=== PATIENT | female | born 1970 | race Caucasian/White ===

== ENCOUNTER 2021-07-30 09:25 | Inpatient (IN) | payer MEDICARE ==
[2021-07-30] VITALS (19 sets, daily range): BP systolic 122–198; BP diastolic 83–107
[~2021-07-30] VITALS: Ht 165.1 cm; Wt 70.0 kg
--- NOTE | 2021-07-30 09:38 | NUR ---
PT ESCORTED TO ROOM FOR EVAL CP, SOB WITH SIGNIFICANT OTHER AT BEDSIDE
[2021-07-30 09:48] LABS: HEMATOCRIT 26.1 % (37.0-47.0); HEMOGLOBIN 7.9 g/dl (12.0-16.0); IMMATURE GRANULOCYTES 0.1 % (0.0-5.0); MEAN CELL VOLUME 92.2 fL CALC (80.0-100.0); MEAN CORPUSCULAR HGB 27.9 pG CALC (26.0-32.0); MEAN CORPUSCULAR HGB CONC 30.3 g/dL CAL (32.0-36.0); NEUT# 3.9 thou/uL (2.00-7.15); RED BLOOD COUNT 2.83 mill/uL (4.20-5.60); RED CELL DISTRI WIDTH 14.3 % (11.5-15.5)
[2021-07-30 10:13] LABS: ALBUMIN 3.8 g/dL (3.2-5.0); BILIRUBIN, TOTAL 0.6 mg/dL (0.0-1.4); POTASSIUM 4.1 mmol/l (3.5-5.1); TOTAL PROTEIN 7.4 g/dL (6.3-8.2)
[2021-07-30 10:15] LABS: CREATININE 7.7 mg/dL (0.5-1.0)
[2021-07-30 10:31] LABS: HCG SERUM/URINE (NEG/POS) NEGATIVE (NEGATIVE)
--- NOTE | 2021-07-30 10:53 | NUR ---
DR MASON IN TO SPEAK WITH PT.
[2021-07-30] MEDS ORDERED: ATIVAN0.5 MG PO (11:12)
[2021-07-30] MEDS ORDERED: AMLODIPINE BESY10 MG PO (11:13)
[2021-07-30] MEDS ORDERED: SODIUM BICAR650 MG PO (11:13)
[2021-07-30] MEDS ORDERED: CITALOPRAM40 M1 PO (11:14)
[2021-07-30] MEDS ORDERED: LIPITOR80 M1 PO (11:14)
--- NOTE | 2021-07-30 12:00 | NUR ---
MD AT BEDSIDE TO DISCUSS RESULTS AND POC
--- NOTE | 2021-07-30 13:47 | NUR ---
Segundo MESSINA APRN AT BEDSIDE TO DISCUSS RESULTS AND POC
--- NOTE | 2021-07-30 14:14 | NUR ---
REPORT CALLED TO MINA MELISSA
--- NOTE | 2021-07-30 14:50 | NUR ---
TO MED SURG VIA STRETCHER
--- NOTE | 2021-07-30 15:15 | NUR ---
Receive report from Damaris EDWARD RN. PATIENT ALERT AND ORIENTED x3. nO RESPIRATORY DISTRESS AT THIS TIME. EDUCATED ABOUT PLAN OF CARE, MEDICATIONS AND NURSING INTERVENTION. PATIENT REFER UNDERSTAND.
[2021-07-30 18:34] LABS: URINE BILIRUBIN - DIPSTICK NEGATIVE (NEGATIVE); URINE BLOOD DIPSTICK TRACE-INTACT (NEGATIVE); URINE CLARITY CLEAR; URINE COLOR YELLOW; URINE GLUCOSE - DIPSTICK NEGATIVE (NEGATIVE); URINE KETONE NEGATIVE (NEGATIVE); URINE LEUK ESTERASE NEGATIVE (Negative); URINE NITRITE - DIPSTICK NEGATIVE (Negative); URINE PROTEIN - DIPSTICK >=300 mg/dL (NEG-TRACE); URINE SPECIFIC GRAVITY 1.025; URINE UROBILINOGEN - DIPSTICK 0.2 E.U./dL (0.2)
[2021-07-30 18:48] LABS: URINE RBC 0-2 RBC/hpf (0-5); URINE SQUAMOUS EPITHELIAL CELL RARE EPI/hpf (0-FEW); URINE WBC 0-2 WBC/hpf (0-5)
--- NOTE | 2021-07-30 20:00 | NUR ---
PATIENT RESTING IN BED AT THIS TIME-AWAKE ALERT AND ORIENTEDX3. TELE MONITOR IN PLACE. IVF 1/2NS HUNG AND INFUSING VIA RAC SITE AT 50CC/HR. SITE REMAINS HEALTHY AT THIS TIME. LUNGS ARE CLEAR. ABD IS SOFT WITH ACTIVE BS. LAST BM WAS TOODAY. PATIENT STATES THAT SHE IS VOIDING QS BUT DOES HAVE HISTORY OF KIDNEY FAILURE. SEES RADIOTELEGRAPHER IN MASS-HERE VISITING. NO PERIPHERAL EDEMA NOTED. PULSES ARE PALPABLE. SAFETY PRECAUTIONS REINFORCED. CALL LIGHT IN REACH. WILL CONT TO MONITOR.
--- NOTE | 2021-07-30 21:40 | NUR ---
PATIENT RESTING IN BED AT THIS TIME. MEDICATED FOR SLEEP WITH ATIVAN 0.5MG PO. PROVIDED WITH SOME APPLE JUICE. CALL LIGHT IN REACH. WILL CONT TO MONITOR.
--- NOTE | 2021-07-30 22:16 | NUR ---
214- PATIENT RESTING IN BED AT THIS TIME-C/O CHEST TIGHTNESS. BP-143/98, HR-104, RESPS-28 O2 SAT IS 92% ON RA. O2 APPLIED AT 2LPM VIA NASAL CANNULA. SKIN WARM AND DRY. EKG WAS DONE AT BEDSIDE. PATIENT MEDICATED WITH TYLENOL 650MG PO. TROP BEING DRAWN. WILL CONT TO MONITOR.
--- NOTE | 2021-07-30 22:45 | NUR ---
.PATIENT RESTING IN BED-TROP REMAINS NEG-0.081. PATIENT STILL WITH SEVERE CHEST PAIN-CHEST PRESSURE. O2 VIA NASAL CANNULA IN PLACE. IVF 1/2NS PATENT AND INFUSING VIA RAC SITE AT 50CC/HR. SITE REMAINS HEALTHY. CALL PLACED TO ARVIN MESSINA APRN AND NEW ORDERS RECIEVED. WILL MEDICATE ORDERED WHEN PROFILED ON EMAR. CALL LIGHT IN REACH. WILL CONT TO MONITOR.
--- NOTE | 2021-07-30 23:40 | NUR ---
RESTING IN BED-STILL WITH SEVERE CHEST PAIN AND TIGHTNESS. MEDICATED WITH ULTRAM 50MG PO FOR PAIN AND WITH PROTONIX 40MG IVP ORDERED. O2 VIA NASAL CANNULA IN PLACE. TELE MONITOR STILL IN ST-LOW 100'S. CALL LIGHT IN REACH. WILL CONT TO MONITOR.
[2021-07-31] VITALS: BP 157/105
--- NOTE | 2021-07-31 00:15 | NUR ---
SPOKE WITH ARVIN AGAIN REGUARDING PATIENT CONT TO HAVE SEVERE CHEST PAIN AND TIGHTNESS. MEDICATED WITH LORTAB 7.5MG PO FOR PAIN. O2 VIA NASAL CANNULA IN PLACE. IVF 1/2NS PATENT AND INFUSING VIA RAC SITE AT 50CC/HR. SITE REMAINS HEALTHY. TELE MONITOR IN PLACE AND CONT TO READ ST-LOW 100'S. SAFETY PRECAUTIONS REINFORCED. CALL LIGHT IN REACH. WILL CONT TO MONITOR.
--- NOTE | 2021-07-31 01:30 | NUR ---
PATIENT RESTING IN BED WITH HOB ELEVATED AND O2 VIA NASAL CANNULA IN PLACE. PATIENT STATES THAT SHE IS FINALLY FEELING BETTER WITH PAIN SCALE NUMBER OF 3/10. IVF PATENT AND INFUSING VIA RAC SITE ORDERED AT 50CC/HR. TELE MONITOR IN PLACE AND READING ST-LOW 100'S. CALL LIGHT IN REACH. WILL CONT TO MONITOR.
--- NOTE | 2021-07-31 02:14 | NUR ---
PATIENT RESTING IN BED WITH EYES CLOSED. RESPS HAVE SLOWED DOWN AND ARE UNLABORED. CALL LIGHT IN REACH. WILL CONT TO MONITOR.
[2021-07-31 04:00] VITALS: BP 131/96
--- NOTE | 2021-07-31 04:00 | NUR ---
PATIENT RESING IN BED AT THIS TIME. EYES CLOSED, RESPS ARE EVEN AND UNLABORED AT THIS TIME. TELE MONITOR IN PLACE-SR-89 AT THIS TIME. IVF 1/2NS PATENT AND INFUSING VIA RAC AT 50CC/HR. SITE REMAINS HEALTHY. CALL LIGHT IN REACH. WILL CONT TO MONITOR.
[2021-07-31 06:39] LABS: HEMATOCRIT 24.3 % (37.0-47.0); HEMOGLOBIN 7.4 g/dl (12.0-16.0); MEAN CELL VOLUME 91.7 fL CALC (80.0-100.0); MEAN CORPUSCULAR HGB 27.9 pG CALC (26.0-32.0); MEAN CORPUSCULAR HGB CONC 30.5 g/dL CAL (32.0-36.0); RED BLOOD COUNT 2.65 mill/uL (4.20-5.60); RED CELL DISTRI WIDTH 14.5 % (11.5-15.5)
[2021-07-31 07:01] VITALS: BP 138/93
[2021-07-31 07:08] LABS: ALBUMIN 3.3 g/dL (3.2-5.0); MAGNESIUM 1.6 mg/dL (1.6-2.3); POTASSIUM 4.9 mmol/l (3.5-5.1)
[2021-07-31 07:09] LABS: MAGNESIUM 1.7 mg/dL (1.6-2.3)
[2021-07-31 07:34] LABS: CREATININE 7.6 mg/dL (0.5-1.0)
[2021-07-31 07:35] LABS: CREATININE 7.6 mg/dL (0.5-1.0)
[2021-07-31 10:19] VITALS: BP 152/97
--- NOTE | 2021-07-31 10:30 | NUR ---
PHYSICIAN AT BEDSIDE.
--- NOTE | 2021-07-31 12:12 | NUR ---
PT ATTEMPTED TO EAT LUNCH. PT VOMITED LARGE AMOUNT OF EMESIS. HR SUSTAINING 120S-130S. ARVIN NIETO NOTIFIED. PT MEDICATED FOR N/V. PT C/O CHEST PAIN HAS RETURNED. WILL MEDICATE AND CONTINUE TO MONITOR.
[2021-07-31 15:04] VITALS: BP 116/78
--- NOTE | 2021-07-31 16:55 | NUR ---
IV TO RIGHT AC NOTED SWOLLEN AND COOL TO TOUCH. PT C/O PAINFUL. IV SITE D/C AND RIGHT ARM ELEVATED ON PILLOWS, ICE PACK PROVIDED AT THIS TIME. NEW IV STARTED BY NICOLE MELISSA. PT TOLERATED WELL. PT DENIES ANY CURRENT WANTS OR NEEDS. NO APPARENT DISTRESS NOTED. CALL LIGHT WITHIN REACH. WILL CONTINUE TO MONITOR.
[2021-07-31 19:00] VITALS: BP 108/78
--- NOTE | 2021-07-31 20:00 | NUR ---
PATIENT RESTING IN BED AT THIS TIME-AWAKE ALERT AND ORIENTEDX3. TELE MONITOR IN PLACE. IV SITE TO LEFT WRIST PATENT WITH IVF 1/2NS PATENT AND INFUSING AT 50CC/HR. REINFORCED TEACHING WITH PATIENT REGUARDING STRICT I&O AND WITH USE URINE HAT IN TOILET INTRUCTED. LUNGS ARE CLEAR BUT DIMINISHED IN THE BASES. NO PERIPHERAL EDEMA NOTED. PULSES ARE PALPABLE. SAFETY PRECAUTIONS REINFORCED. CALL LIGHT IN REACH. WILL CONT TO MONITOR.
--- NOTE | 2021-07-31 21:49 | NUR ---
PATIENT SITTING UP IN BED WITH EYES CLOSED AND O2 VIA NASAL CANNULA IN PLACE AT 2LPM. RESPS ARE EVEN AND UNLABORED. IVF PATENT AND INFUSING VIA LEFT WRIST IV SITE AT 50CC/HR. TELE MONITOR IN PLACE. CALL LIGHT IN REACH. WILL CONT TO MONITOR.
--- NOTE | 2021-07-31 22:00 | NUR ---
PATIENT RESTING IN BED-C/O LEFT SIDE CHEST AND RIGHT BACK PAIN-MEDICATED WITH ULTRAM 50MG PO FOR 4/10 PAIN SCALE. IVF PATENT AND INFUSING AT 50CC/HR VIA LEFT WRIST. TELE MONITOR IN PLACE. SAFETY PRECAUTIONS REINFORCED. CALL LIGHT IN REACH. WILL CONT TO MONITOR.
[2021-08-01] VITALS (13 sets, daily range): BP systolic 89–196; BP diastolic 55–92
--- NOTE | 2021-08-01 00:19 | NUR ---
PATIENT RESTING IN BED WITH EYES CLOSED AND O2 VIA NASAL CANNULA IN PLACE. RESPS ARE EVEN AND UNLABORED AT THIS TIME. IVF PATENT AND INFUSING VIA LEFT WRIST SITE AT 50CC/HR. TELE MONITOR IN PLACE. CALL LIGHT IN REACH. WILL CONT TO MONITOR.
--- NOTE | 2021-08-01 04:38 | NUR ---
PATIENT RESTING IN BED AT THIS TIME. O2 VIA NASAL CANNULA IN PLACE. TELE MONITOR IN PLACE-LAST READING WAS SR-92. IVF 1/2NS PATENT AND INFUSING VIA LEFT WRIST. CALL LIGHT IN REACH. WILL CONT TO MONITOR.
[2021-08-01 06:11] LABS: HEMATOCRIT 22.2 % (37.0-47.0); MEAN CELL VOLUME 91.4 fL CALC (80.0-100.0); MEAN CORPUSCULAR HGB CONC 30.6 g/dL CAL (32.0-36.0); RED BLOOD COUNT 2.43 mill/uL (4.20-5.60); RED CELL DISTRI WIDTH 14.7 % (11.5-15.5)
[2021-08-01 06:33] LABS: ALBUMIN 3.2 g/dL (3.2-5.0); MAGNESIUM 1.6 mg/dL (1.6-2.3); POTASSIUM 4.6 mmol/l (3.5-5.1)
[2021-08-01 06:35] LABS: HEMOGLOBIN 6.8 g/dl (12.0-16.0)
[2021-08-01 06:46] LABS: CREATININE 7.5 mg/dL (0.5-1.0)
--- NOTE | 2021-08-01 07:10 | NUR ---
REPORT FROM LYLA MELISSA. ASSUMED PT CARE.
--- NOTE | 2021-08-01 07:20 | NUR ---
RECIEVED CALL FROM LAB WITH CRITICAL LAB [id number]-5.4, HGB-6.8. ORDERS RECIEVED FROM DR. VICKI PURVIS BLOOD TRANSFUSION
--- NOTE | 2021-08-01 08:15 | NUR ---
NEW IV ESTABLISHED BY NICOLE MELISSA. # 20 RAC X1 ATTEMPT PT TOLERATED WELL.
--- NOTE | 2021-08-01 10:11 | NUR ---
PRBC INITIATED BY NICOLE MELISSA. PT TOLERATING WELL. WILL CONTINUE TO MONITOR.
--- NOTE | 2021-08-01 11:04 | NUR ---
PHYSICIAN AT BEDSIDE.
--- NOTE | 2021-08-01 14:13 | NUR ---
PT C/O CHEST PAIN. ARVIN NIETO NOTIFIED. PT STATES SAME PAIN FELT BEFORE. MEDICATED WITH PRN ULTRAM AT THIS TIME. PT DENIES ANY OTHER CURRENT WANTS OR NEEDS. CALL LIGHT WITHIN REACH. WILL CONTINUE TO MONITOR.
--- NOTE | 2021-08-01 15:35 | NUR ---
PT NOTED RESTING IN BED. NO APPARENT DISTRESS NOTED. PT STATES SHE FEELS BETTER AND PAIN HAS SUBSIDED. CALL LIGHT WITHIN REACH. WILL CONTINUE TO MONITOR.
--- NOTE | 2021-08-01 20:00 | NUR ---
PATIENT SITTING UP IN BED AT THIS TIME WITH 02 V[address] CANNULA IN PLACE. AWAKE ALERT AND ORIENTEDX3. O2 SAT AT THIS TIME IS 98%. TELE MONITOR IN PLACE. READING SR-99 AT THIS TIME. IVF PATENT AND INFUSING VIA LEFT WRIST SITE AT 50CC/HR . SITE REMAINS HEALTHY. SALINE LOCK TO RAC INTACT AND HEALTHY. LUNGS ARE DIMINISHED AND SHALLOW. UP TO BR TO VOID. PATIENT WITH TRACE EDEMA NOTED. SAFETY PRECAUTIONS REINFORCED. CALL LIGHT IN REACH. WILL CONT TO MONITOR.
[2021-08-02] VITALS: BP 121/79
--- NOTE | 2021-08-02 01:40 | NUR ---
RESTING IN BED WITH HOB ELEVATED-EYES CLOSED. RESPS REGULAR AND SHALLOW. CALL LIGHT IN REACH. WILL CONT TO MONITOR.
[2021-08-02 04:00] VITALS: BP 109/69
--- NOTE | 2021-08-02 05:00 | NUR ---
RESTING IN BED AT THIS TIME-EYES CLOSED, RESPS ARE EVEN AND UNLABORED. O2 VIA NASAL CANNULA IN PLACE, IVF PATENT AND INFUSING VIA LEFT WRIST SITE. CALL LIGHT IN REACH. WILL CONT TO MONITOR.
[2021-08-02 06:42] LABS: ALBUMIN 3.2 g/dL (3.2-5.0); MAGNESIUM 1.7 mg/dL (1.6-2.3)
[2021-08-02 06:43] LABS: HEMATOCRIT 24.6 % (37.0-47.0); HEMOGLOBIN 7.8 g/dl (12.0-16.0); MEAN CELL VOLUME 91.1 fL CALC (80.0-100.0); MEAN CORPUSCULAR HGB 28.9 pG CALC (26.0-32.0); MEAN CORPUSCULAR HGB CONC 31.7 g/dL CAL (32.0-36.0); RED BLOOD COUNT 2.7 mill/uL (4.20-5.60); RED CELL DISTRI WIDTH 14.5 % (11.5-15.5)
[2021-08-02 06:58] LABS: POTASSIUM 4.6 mmol/l (3.5-5.1)
--- NOTE | 2021-08-02 07:00 | NUR ---
RECIEVED CALL FROM ED IN LAB WITH CRITICAL LAB RESULTS. CREAT-7.0 AND GFR-8. TREANDING DOWN. AWARE OF TREND. WILL CONT TO MONITOR.
[2021-08-02 08:00] VITALS: BP 135/94
--- NOTE | 2021-08-02 08:00 | NUR ---
GOT REPORT FROM COMPUTER NETWORK SPECIALIST NURSE. CHECKED AND ASSESSED PATIENT. PATIENT IS AOX4. RESTING COMFORTABLE ON 2L OF O2. PATIENT DENIES ANY SHORTNESS OF BREATH, CHEST PAIN, HEADACHE, OR DIZZINESS.
[2021-08-02 10:27] VITALS: BP 132/83
--- NOTE | 2021-08-02 12:00 | NUR ---
PATIENT RESTING IN BED WITH FAMILY MEMBER AT BEDSIDE. PATIENT DENIES ANY SHORTNESS OF BREATH. ADVISED PATIENT THAT WE ARE GOING TO DO A WALK TEST BUT PATIENT WANTS TO WAIT AFTER ALL HER ANTIBIOTICS ARE DONE AND SHE HAS ATE SOMETHING FOR LUNCH
[2021-08-02 15:00] VITALS: BP 105/71
[2021-08-02 19:00] VITALS: BP 128/83
--- NOTE | 2021-08-02 20:15 | NUR ---
PATIENT ALERT AND ORIENTED. ABLE TO MAKE NEEDS KNOWN. ASSESSMENT COMPLETE. NO SHORTNESS OF BREATH. NO COMPLAINTS OF PAIN. O2 AT 2L VIA NC. PATIENT USES IS. IV SITES X2 FLUSH WITHOUT DIFFICULTY. CALL LIGHT AND BELONGINGS REMAIN IN REACH.
[2021-08-03] VITALS (7 sets, daily range): BP systolic 95–139; BP diastolic 65–91
--- NOTE | 2021-08-03 00:55 | NUR ---
PATIENT RESTING IN BED FACING HER RIGHT SIDE. NO COMPLAINTS OF PAIN. NO DISTRESS NOTED. REMAINS WEARING OXYGEN AT 2L VIA NC. CALL LIGHT AND BELONGINGS REMAIN IN REACH.
[2021-08-03 06:00] LABS: MEAN CELL VOLUME 90.5 fL CALC (80.0-100.0); MEAN CORPUSCULAR HGB 27.5 pG CALC (26.0-32.0); MEAN CORPUSCULAR HGB CONC 30.3 g/dL CAL (32.0-36.0); RED BLOOD COUNT 4.44 mill/uL (4.20-5.60); RED CELL DISTRI WIDTH 14.8 % (11.5-15.5)
[2021-08-03 06:01] LABS: HEMATOCRIT 40.2 % (37.0-47.0); HEMOGLOBIN 12.2 g/dl (12.0-16.0)
[2021-08-03 06:20] LABS: ALBUMIN 3.2 g/dL (3.2-5.0); MAGNESIUM 1.8 mg/dL (1.6-2.3); POTASSIUM 4.7 mmol/l (3.5-5.1); TOTAL PROTEIN 6.1 g/dL (6.3-8.2)
[2021-08-03 06:50] LABS: BILIRUBIN, TOTAL 0.3 mg/dL (0.0-1.4); CREATININE 7.7 mg/dL (0.5-1.0)
--- NOTE | 2021-08-03 20:20 | NUR ---
PT RESTING IN BED, NO SIGNS OF DISTRESS NOTED, RESP EVEN AND UNLABORED. PT ALERT AND ORIENTED X3, DISCUSSED POC, PT WEARING 02 1.5 L, SKIN INTACT TRACE EDEMA TO BLE, FLUSHED IV SITES X2, PT DENIES ANY NEEDS OR COMPLAINTS AT THIS TIME. ASSESSMENT COMPLETED PT MEDICATED PER MAR. CALL LIGHT IN REACH,CONTINUE TO MONITOR.
--- NOTE | 2021-08-04 | NUR ---
PT RESTING IN BED, NO SIGNS OF DISTRESS NOTED, RESP EVEN AND UNLABORED. PT GIVEN ICE, PER REQUEST. VOICES NO NEEDS OR COMPLAINTS AT THIS TIME, CALL LIGHT IN REACH,CONTINUE TO MONITOR.
[2021-08-04 03:35] VITALS: BP 122/79
--- NOTE | 2021-08-04 04:04 | NUR ---
PT RESTING IN BED, NO SIGNS OF DISTRESS NOTED, RESP EVEN AND UNLABORED. PT VOICES NO NEEDS OR COMPLAINTS AT THIS TIME. CALL LIGHT IN REACH,CONTINUE TO MONITOR.
[2021-08-04 05:48] LABS: MEAN CELL VOLUME 93.5 fL CALC (80.0-100.0); MEAN CORPUSCULAR HGB 28.3 pG CALC (26.0-32.0); MEAN CORPUSCULAR HGB CONC 30.2 g/dL CAL (32.0-36.0); RED BLOOD COUNT 2.76 mill/uL (4.20-5.60); RED CELL DISTRI WIDTH 14.8 % (11.5-15.5)
[2021-08-04 06:15] LABS: ALBUMIN 3.2 g/dL (3.2-5.0); MAGNESIUM 1.9 mg/dL (1.6-2.3); POTASSIUM 4.5 mmol/l (3.5-5.1)
[2021-08-04 06:24] LABS: CREATININE 7.5 mg/dL (0.5-1.0)
[2021-08-04 06:47] LABS: HEMATOCRIT 25.8 % (37.0-47.0); HEMOGLOBIN 7.8 g/dl (12.0-16.0)
[2021-08-04 08:27] VITALS: BP 136/93
--- NOTE | 2021-08-04 10:21 | NUR ---
GOT REPORT FROM NIGHT NURSE. PATIENT IS AOX4. PATIENT DENIES ANY PAIN IN THE CHEST AND SOB. PATIENT STATES THAT SHE WAS ABLE TO HAVE BM YESTERDAY. NO COMPLAINTS AT THIS TIME.
[2021-08-04 10:32] VITALS: BP 130/89
--- NOTE | 2021-08-04 12:05 | NUR ---
PATIENT IS SITTING UP IN BED WITH BOYFRIEND AT BEDSIDE. PATIENT DENIES ANY CHEST PAIN OR DISCOMFORT AT THIS TIME. ADVISED TO CALL IF SHE NEEDS ANYTHING.
[2021-08-04 14:00] VITALS: BP 130/68
[2021-08-04 18:51] VITALS: BP 124/76
--- NOTE | 2021-08-04 20:00 | NUR ---
PT RESTING IN BED, NO SIGNS OF DISTRESS NOTED, RESP EVEN AND UNLABORED. PT ALERT AND ORIENTED X3, DISCUSSED POC, PT C/O EPIGASTRIC PAIN MEDICATED PER MAR. PT ON 02 1L NC, SKIN INTACT. IV SL TO RFA FLUSHED WELL. ASSESSMENT REVIEW COMPLETED, CALL LIGHT IN REACH,CONTINUE TO MONITOR.
--- NOTE | 2021-08-04 21:30 | NUR ---
PT RESTING IN BED, STATES PAIN IS BETTER DOWN TO A 3. NO SIGNS OF DISTRESS NOTED, RESP EVEN AND UNLABORED. CALL LIGHT IN REACH,CONTINUE TO MONITOR.
--- NOTE | 2021-08-05 | NUR ---
PT RESTING IN BED, NO SIGNS OF DISTRESS NOTED, RESP EVEN AND UNLABORED. CALL LIGHT IN REACH,CONTINUE TO MONITOR.
[2021-08-05 00:18] VITALS: BP 124/79
[2021-08-05 03:17] VITALS: BP 139/86
[2021-08-05 05:32] LABS: HEMATOCRIT 24.8 % (37.0-47.0); HEMOGLOBIN 7.6 g/dl (12.0-16.0); IMMATURE GRANULOCYTES 0.5 % (0.0-5.0); MEAN CELL VOLUME 93.9 fL CALC (80.0-100.0); MEAN CORPUSCULAR HGB 28.8 pG CALC (26.0-32.0); MEAN CORPUSCULAR HGB CONC 30.6 g/dL CAL (32.0-36.0); NEUT# 3.96 thou/uL (2.00-7.15); RED BLOOD COUNT 2.64 mill/uL (4.20-5.60); RED CELL DISTRI WIDTH 15.2 % (11.5-15.5)
[2021-08-05 05:54] LABS: ALBUMIN 3.3 g/dL (3.2-5.0); BILIRUBIN, TOTAL 0.3 mg/dL (0.0-1.4); POTASSIUM 4.7 mmol/l (3.5-5.1); TOTAL PROTEIN 6.1 g/dL (6.3-8.2)
[2021-08-05 06:05] LABS: CREATININE 7.6 mg/dL (0.5-1.0)
[2021-08-05 06:33] VITALS: BP 141/97
--- NOTE | 2021-08-05 08:00 | NUR ---
GOT REPORT FROM CONTROL ROOM OPERATOR NURSE. CHECKED AND ASSESSED PATIENT. AOX4, NO CHEST PAIN OR DISCOMFORT. PATIENT STATES THAT SHE IS JUST REALLY TIRED SHE DID NOT SLEEP WELL LAST NIGHT. ADVISED HER THAT WE WILL TRY TO GROUP HER CARE TODAY. ADVISED HER TO CALL ME IF SHE NEEDS ANYTHING.
[2021-08-05 10:06] VITALS: BP 124/81
[2021-08-05 14:39] VITALS: BP 114/77
[2021-08-05 19:00] VITALS: BP 123/84
--- NOTE | 2021-08-05 20:37 | NUR ---
PATIENT RESTING IN BED. NO COMPLAINTS VOICED. RECEIVED ALL MEDICATIONS. NO SIGNS OF DISTRESS. ASSESSMENT COMPLETE. CALL LIGHT AND BELONGINGS IN REACH. PROVIDED PATIENT WITH FRESH ICE AND JUICE PER HER REQUEST.
[2021-08-06 00:18] VITALS: BP 131/83
--- NOTE | 2021-08-06 03:25 | NUR ---
AT 0310 PATIENT COMPLAINED OF SHORTNESS OF BREATH. O2 SAT 89 ON 1L. PATIENT ABLE TO TALK AND COMMUNICATE. INCREASED OXYGEN TO 3L. O2 SAT INCREASED TO 92% . EXPLAINED TO PATIENT WHY THE OXYGEN WAS INCREASED. AT 314 CALLED RESP TO COME ACCESS PATIENT. AT 324 PATIENT WAS GIVEN BREATHING TX BY RESP. RESP EXPLAINED TO PATIENT WHY SHE NEEDED TO STAY ON 3L OF OXYGEN.
--- NOTE | 2021-08-06 05:15 | NUR ---
PATIENT ASKED BLACKSMITH SUPERVISOR TO TURN HER OXYGEN DOWN, KNOWING MYSELF AND RT BOTH EXPLAINED IMPORTANCE OF HER NEEDING HER OXYGEN AT 3L. BLACKSMITH SUPERVISOR WAS REEDUCATED ON PATIENT SITUATION AND THE IMPORTANCE OF THE OXYGEN.
--- NOTE | 2021-08-06 05:38 | NUR ---
CALLED RT AND INFORMED OF PATIENTS OXYGEN SATS RANGING FROM 87-90% ON 3L. ALSO INFORMED RT OF PATIENT HAVING CALF SKINNER TURN DOWN HER OXYGEN AFTER HE LEFT HER ROOM AFTER HER BREATHING TX.
[2021-08-06 05:46] VITALS: BP 154/89
--- NOTE | 2021-08-06 05:50 | NUR ---
RESP. WENT TO PATIENT ROOM AGAIN TO CHECK ON HER. INSTRUCTED PATIENT TO DO PURSED LIP BREATHING TO HELP INCREASE HER OXYGEN SAT TO 92%.
[2021-08-06 05:55] LABS: ALBUMIN 3.5 g/dL (3.2-5.0); POTASSIUM 4.6 mmol/l (3.5-5.1)
[2021-08-06 06:17] LABS: CREATININE 7.4 mg/dL (0.5-1.0)
--- NOTE | 2021-08-06 06:49 | NUR ---
PATIENT REFUSED 7AM BREATHING TX FROM RESP THERAPIST.
--- NOTE | 2021-08-06 08:00 | NUR ---
GOT REPORT FROM GATE TECHNICIAN NURSE. CHECKED ON AND ASSESSED PATIENT. PATIENT WAS ASLEEP WHEN I GOT INTO HER ROOM. PATIENT LOOKS TO BED IN PAIN BUT SHE TELLS ME THAT HER PAIN IS ABOUT 3-4. SHE STATES THAT SHE WANT TO WAIT ON GETTING THE PAIN MED. O2 SATS ARE BETWEEN 91-93% ON 5L NC. PATIENT STATES THAT SHE WANT TO SLEEP BECAUSE SHE DID NOT GET MUCH SLEEP LAST NIGHT.
[2021-08-06 11:36] VITALS: BP 131/87
[2021-08-06 17:27] VITALS: BP 126/81
--- NOTE | 2021-08-06 20:00 | NUR ---
PATIENT SITTING UP IN BED-O2 VIA NASAL CANNULA IN PLACE AT 3LPM. O2 SAT IS 93% AT THIS TIME. LUNGS ARE DIMINISHED BUT CLEAR. TELE MONITOR IN PLACE WITH SR-90'S. SALINE LOCK TO RIGHT FOREARM INTACT-APPEARS HEALTHY AT THIS TIME. PATIENT UP TO BR TO VOID CESAR URINE-700CC. ANXIOUS FOR DISCHARGE. AWAITING HOME O2 AT THIS TIME. SAFETY PRECAUTIONS REINFORDCED. CALL LIGHT IN REACH. WILL CONT TO MONITOR.
[2021-08-06 20:09] VITALS: BP 121/73
--- NOTE | 2021-08-06 23:45 | NUR ---
RESTING IN BED AT THIS TIME-O2 VIA NASAL CANNULA IN PLACE. CALL LIGHT IN REACH. WILL CONT TO MONITOR.
[2021-08-07] VITALS (8 sets, daily range): BP systolic 114–144; BP diastolic 61–96
[2021-08-07 05:50] LABS: HEMATOCRIT 25.7 % (37.0-47.0); HEMOGLOBIN 7.7 g/dl (12.0-16.0); MEAN CELL VOLUME 95.9 fL CALC (80.0-100.0); MEAN CORPUSCULAR HGB 28.7 pG CALC (26.0-32.0); RED BLOOD COUNT 2.68 mill/uL (4.20-5.60); RED CELL DISTRI WIDTH 15.8 % (11.5-15.5)
[2021-08-07 06:08] LABS: ALBUMIN 3.4 g/dL (3.2-5.0)
[2021-08-07 06:26] LABS: CREATININE 7.7 mg/dL (0.5-1.0); POTASSIUM 5.2 mmol/l (3.5-5.1)
--- NOTE | 2021-08-07 06:26 | NUR ---
RECIEVED CALL FROM LYLA IN THE LAB WITH CRITICAL LAB [id number]-0.7. PATIENT WITH ESRD AND MD ALREADY AWARE OF THE TREND. WILL CONT TO MONITOR.
--- NOTE | 2021-08-07 08:00 | NUR ---
ASSESSMENT AND VITALS ALLOWED. PT A&O X3. TELE MONITOR IN PLACE. CONTINOUS MONITORING PER ED. IV 22G LFA SL FLUSHED WITH NO RESISTANCE. PT STATES NO PAIN AT THIS TIME. O2 IN PLACE @3L VIA NC. FALL/ SAFTEY PRECAUTION IN PLACE. CALL LIGHT IS WITHIN REACH.
--- NOTE | 2021-08-07 13:43 | NUR ---
PT COMPLAINS OF CHEST PAIN AND FEELING SOB. EKG ORDERED. MD VANG NOTIFIED. CALLED RT TO NOTIFY ABOUT ORDER. VITALS -BP: 114/81 -HR: 99 -SPO2: 91 PT ON 3L VIA NC 1345: RT PERFORMED EKG. SEE EMAR FOR EKG DOCUMENTATION.
--- NOTE | 2021-08-07 15:54 | NUR ---
PT STATES FEELING MUCH BETTER AT THIS TIME. BREATHING IS EVEN AND UNLABORED. TELE MONITOR IN PLACE. FALL/SAFTEY PRECAUTIONS IN PLACE. CALL LIGHT IS WITHIN REACH.
--- NOTE | 2021-08-07 20:32 | NUR ---
PATIENT RESTING IN BED-AWAKE ALERT AND ORIENTEDX3 WITH O2 VIA NASAL CANNULA IN PLACE. TELE MONITOR IN PLACE AND READING SR-90'S. MEDICATED FOR CHEST PAIN WITH ULTRAM 50MG PO ORDERED. PATIENT STATES THAT THIS IS THE SAME TYPE OF CHEST PAIN THAT SHE HAS HAD SINCE ADMISSION. UP TO THE BR TO VOID CESAR URINE. NO BM SINCE 08/03. OFFERED PATIENT LAXATIVE BUT PATIENT DECLINES AT THIS TIME. STATES THAT SHE WILL TAKE SOMETHING IN THE MORNING IF SHE NEEDS IT. PATIENT FRUSTRATED WITH LONG HOSPITALIZATION. SAFETY PRECAUTION REINFORCED. CALL LIGHT IN REACH. WILL CONT TO MONITOR.
[2021-08-08] VITALS: BP 125/70
--- NOTE | 2021-08-08 00:42 | NUR ---
PATIENT RESTING IN BED-TELE MONITOR IN PLACE. LAST READING WAS SR-98. O2 VIA NASAL CANNULA IN PLACE. CALL LIGHT IN REACH. WILL CONT TO MONITOR.
[2021-08-08 02:43] VITALS: BP 121/78
--- NOTE | 2021-08-08 04:02 | NUR ---
PATIENT RESTING IN BED AT THIS TIME WITH O2 VIA NASAL CANNULA IN PLACE AT 2LPM. NO COMPLAINTS AT THIS TIME. TELE MONITOR IN PLACE-STILL SR-90'S. SALINE LOCK TO RIGHT FOREARM INTACT. SAFETY PRECAUTIONS REINFORCED. CALL LIGHT IN REACH. WILL CONT TO MONITOR.
[2021-08-08 05:10] LABS: HEMATOCRIT 25.9 % (37.0-47.0); HEMOGLOBIN 7.8 g/dl (12.0-16.0); MEAN CELL VOLUME 96.3 fL CALC (80.0-100.0); MEAN CORPUSCULAR HGB CONC 30.1 g/dL CAL (32.0-36.0); RED BLOOD COUNT 2.69 mill/uL (4.20-5.60); RED CELL DISTRI WIDTH 15.9 % (11.5-15.5)
[2021-08-08 05:40] LABS: MAGNESIUM 2.3 mg/dL (1.6-2.3)
[2021-08-08 06:06] LABS: CREATININE 8.2 mg/dL (0.5-1.0); POTASSIUM 5.5 mmol/l (3.5-5.1)
--- NOTE | 2021-08-08 06:09 | NUR ---
RECIEVED CALL FROM ED IN THE LAB WITH CRITICAL LAB-CREAT 8.2. PATIENT WITH ESRD-MD AWARE OF TREND. NO NEW ORDERS AT THIS TIME. WILL CONT TO MONITOR.
--- NOTE | 2021-08-08 06:19 | NUR ---
[id number] ON LABS THIS MORNING. RESPONDED TO ROOM AND GLUCOSE MONITOR WAS 46. PATIENT ASYMPTOMATIC. SKIN IS WARM AND DRY. ALERT AND ORIENTEDX3. NO VISION DISTURBANCES. GLUCOSE MONITOR WAS 46 WELL. PATIENT IS TAKING PO OJ WITH SUGAR AT THIS TIME. CALLED FOR EARLY BREAKFAST TRAY. WILL CONT TO MONITOR.
--- NOTE | 2021-08-08 06:39 | NUR ---
PATIENT FINISHED HER JUICE AND WAS EATING PEANUT BUTTER CRACKERS AND JUICE. BREAKFAST TRAY WAS DELIVERED TO HER ROOM. WILL CONT TO MONITOR.
--- NOTE | 2021-08-08 07:07 | NUR ---
RECHECKED PTS GLUCOSE @0700 WAS 67.
[2021-08-08 07:17] VITALS: BP 138/92
[2021-08-08 10:49] VITALS: BP 118/82
[2021-08-08 14:26] VITALS: BP 126/80
[2021-08-08] MEDS ORDERED: DOXYCYC MONO100 M3 PO (15:47)
[2021-08-08] MEDS ORDERED: TRAMADOL HCL50 MG PO (17:55)
== END 2021-08-08 18:49 | disposition home or self-care (01) | DRG 193 ==
LOC: ED 09:25 → ED-I 11:55 → ED 12:10 → MS2 12:11
PROVIDERS: Family Medicine; Hospitalist; Internal Medicine; Internal Medicine Nephrology; Nurse Practitioner; ADMIT Internal Medicine; ATTEND Internal Medicine
PROC: 30233N1 Transfusion of Nonautologous Red Blood Cells into Peripheral Vein, Percutaneous Approach (ICD-10-PCS; principal; 2021-08-01)
DX: J18.9 Pneumonia, unspecified organism (principal); J96.01 Acute respiratory failure with hypoxia; I13.11 Hypertensive heart and chronic kidney disease without heart failure, with stage 5 chronic kidney disease, or end stage renal disease; N18.5 Chronic kidney disease, stage 5; N17.9 Acute kidney failure, unspecified; E87.2 Acidosis; N25.81 Secondary hyperparathyroidism of renal origin; E87.1 Hypo-osmolality and hyponatremia; D63.1 Anemia in chronic kidney disease; E78.5 Hyperlipidemia, unspecified; F41.9 Anxiety disorder, unspecified; F32.A Depression, unspecified; K59.00 Constipation, unspecified; Z20.822 Contact with and (suspected) exposure to COVID-19
CPT/HCPCS: G0378; J1756; P9016; Q5106 EC; S0164

== ENCOUNTER 2021-08-10 05:30 | Inpatient (IN) | payer MEDICARE ==
[~2021-08-10] VITALS: Ht 152.4 cm; Wt 57.0 kg
[2021-08-10] VITALS (108 sets, daily range): BP systolic 100–148; BP diastolic 66–92
[~2021-08-10 05:30] MED LIST: AMLODIPINE BESY10 MG PO; ATIVAN0.5 MG PO; CITALOPRAM40 M1 PO; DOXYCYC MONO100 M3 PO; LIPITOR80 M1 PO; SODIUM BICAR650 MG PO; TRAMADOL HCL50 MG PO
--- NOTE | 2021-08-10 05:30 | NUR ---
PT ARRIVED VIA EMS WITH BIPAP...LABORED BREATHING. RT AT BEDSIDE. DR AT BEDSIDE.
[2021-08-10 05:56] LABS: HEMATOCRIT 30.5 % (37.0-47.0); IMMATURE GRANULOCYTES 1.2 % (0.0-5.0); MEAN CELL VOLUME 97.1 fL CALC (80.0-100.0); MEAN CORPUSCULAR HGB 28.7 pG CALC (26.0-32.0); MEAN CORPUSCULAR HGB CONC 29.5 g/dL CAL (32.0-36.0); RED BLOOD COUNT 3.14 mill/uL (4.20-5.60); RED CELL DISTRI WIDTH 16.2 % (11.5-15.5)
[2021-08-10] MEDS ORDERED: [UNRECOGNIZED DRUG - OTHER] (05:58)
[2021-08-10 06:19] LABS: ALBUMIN 3.9 g/dL (3.2-5.0); TOTAL PROTEIN 7.2 g/dL (6.3-8.2)
[2021-08-10 06:20] LABS: POTASSIUM 5.1 mmol/l (3.5-5.1)
[2021-08-10 06:27] LABS: BILIRUBIN, TOTAL 0.5 mg/dL (0.0-1.4); CREATININE 8.3 mg/dL (0.5-1.0)
--- NOTE | 2021-08-10 08:33 | NUR ---
PT ARRIVED TO THE UNIT VIA STRETCHER WITH RT AND ER NURSE. PT INTUBATED AND USING AMBU BAG WITH 15L OF OXYGEN FOR VENTILATION. PT ASSISTED FROM STRETCHER TO BED SAFELY. VSS THROUGHOUT TRANSITION. PT PLACES ON VENTILATOR MACHINE, ATTACHED TO HARDWIRES IN ROOM AND ASSESSMENT PREFORMED. RESTRAINTS INITIATED. VENTS SETTING PER RT. PT DOES NOT APPEAR TO BE IN ANYTYPE OF PAIN OR DISTRESS. WILL CONTINUE TO MONITOR CLOSELY.
--- NOTE | 2021-08-10 08:56 | NUR ---
ICU TRANSFER RM 8, REPORT GIVEN TO BELÉN BEASLEY. ALL QUESTIONS ANSWERED. TRANSITION OF CARE COMPLETE
--- NOTE | 2021-08-10 10:00 | NUR ---
PT VSS, VENT IN PLACE RT MONITORING. AWARE OF ABG. NO CHANGE TO SETTINGS. DR. HANKINS ORDERING CONSENT FOR DIALYSIS. ON PHONE AND GIVES CONSENT WITH TWO NURSES. PT DOES NOT APPEAR TO BE IN ANYTYPE OF DISTRESS.
--- NOTE | 2021-08-10 10:32 | NUR ---
SXN PT FOR MIN AMOUNT THIN, YELLOW SECRETIONS.
--- NOTE | 2021-08-10 12:09 | NUR ---
DIALYSIS NURSE IN ROOM, INITIATING DIALYSIS AT THIS TIME. MD ON FLOOR AND AWARE.
--- NOTE | 2021-08-10 14:50 | NUR ---
VERSED DRIP INITIATED R/T PROPOFOL BEING AT MAXIMUM RATE. PT VSS. DIALYSIS IN PROGRESS.
--- NOTE | 2021-08-10 15:22 | NUR ---
VERSED TITRATED AT THIS TIME TO 2MG/HR. PT IS HAVING ARM AND LEG TWITCHING. DIALYSIS RUNNING AT THIS TIME WITH NO INTERRUPTIONS.
--- NOTE | 2021-08-10 16:15 | NUR ---
spoke to patient's niece, CODE WAS GIVEN, UPDATE WAS PROVIDED.
--- NOTE | 2021-08-10 17:31 | NUR ---
FAMILY AT BS, PT VSS. GIVEN EDUCATION OF POC AND VSS, VENTILATOR SETTINGS. FAMILY ADMITS TO PT'S SWELLING LOOKING BETTER THAN PRIOR TO ARRIVAL TO HOSPITAL. PT VERSED DECREASED TO 2MG/HR.
--- NOTE | 2021-08-10 19:30 | NUR ---
vent cont assisted by pt. research hydraulic engineer shows sinus rhythm. ivf infusing well. faustin cath in place draining small amt yellow urine. scds on. fall precautions & bilat wrist restraints cont. turned & repositioned. requires total care for all needs.
--- NOTE | 2021-08-10 21:15 | NUR ---
urine spec collected & sent to lab.
[2021-08-10 21:26] LABS: URINE BILIRUBIN - DIPSTICK NEGATIVE (NEGATIVE); URINE BLOOD DIPSTICK MODERATE (NEGATIVE); URINE COLOR YELLOW; URINE GLUCOSE - DIPSTICK NEGATIVE (NEGATIVE); URINE KETONE NEGATIVE (NEGATIVE); URINE LEUK ESTERASE TRACE (NEGATIVE); URINE PROTEIN - DIPSTICK >=300 mg/dL (NEG-TRACE); URINE UROBILINOGEN - DIPSTICK 0.2 E.U./dL (0.2)
[2021-08-10 21:28] LABS: URINE NITRITE - DIPSTICK NEGATIVE (Negative)
[2021-08-10 21:37] LABS: URINE CASTS RARE lpf (NONE-RARE); URINE SQUAMOUS EPITHELIAL CELL FEW EPI/hpf (0-FEW)
[2021-08-11] VITALS (37 sets, daily range): BP systolic 88–134; BP diastolic 56–87
--- NOTE | 2021-08-11 00:01 | NUR ---
vent cont assisted by pt. no apparent distress. has small uop as of yet.
--- NOTE | 2021-08-11 02:00 | NUR ---
vent cont assisted by pt. no distress.
--- NOTE | 2021-08-11 04:00 | NUR ---
blood drawn & sent to lab.
--- NOTE | 2021-08-11 05:00 | NUR ---
xray here. pcxr obtained.
[2021-08-11 05:28] LABS: HEMOGLOBIN 7.8 g/dl (12.0-16.0); MEAN CELL VOLUME 96.3 fL CALC (80.0-100.0); MEAN CORPUSCULAR HGB 28.9 pG CALC (26.0-32.0); RED BLOOD COUNT 2.7 mill/uL (4.20-5.60); RED CELL DISTRI WIDTH 15.6 % (11.5-15.5)
[2021-08-11 05:37] LABS: MAGNESIUM 2.3 mg/dL (1.6-2.3)
--- NOTE | 2021-08-11 05:45 | NUR ---
rt here. abg drawn.
[2021-08-11 05:51] LABS: CREATININE 6.1 mg/dL (0.5-1.0)
[2021-08-11 05:52] LABS: ALBUMIN 3.1 g/dL (3.2-5.0); POTASSIUM 5.7 mmol/l (3.5-5.1)
--- NOTE | 2021-08-11 06:47 | NUR ---
PT C NAD. VSS. RESTING COMFORTABLY.ETT PATENT AND STABLE. MANGA ARTIST TO MONITOR.
--- NOTE | 2021-08-11 08:00 | NUR ---
REPORT RECEIVED FROM BETTY ELAINE. PT VSS, ASSESSMENT PREFORMED. PT DOES NOT APPEAR TO BE IN ANY TYPE OF DISTRESS. VENT SETTINGS PER RT. WILL CONTINUE TO MONITOR CLOSELY.
--- NOTE | 2021-08-11 10:37 | NUR ---
VERSED INITIATED AT THIS TIME PER PROTOCOL R/T TO PATIENT HAVING GAG REFLEX AND COUGHING WITH MOVEMENT OF POSITION. VSS. PT ROTATED TO THE RIGHT SIDE.
--- NOTE | 2021-08-11 12:04 | NUR ---
PT RECEIVING DIALYSIS AT THIS TIME, BP IS 95/57. PHARMACY NOTIFIED OF NEED FOR LEVOPHED. WILL INITIATE AND CONTINUE DIALYSIS
--- NOTE | 2021-08-11 13:03 | NUR ---
pt c nad. vss. resting comfortably c family at bedside. labor expediter to monitor.
--- NOTE | 2021-08-11 15:00 | NUR ---
DIALYSIS TREATMENT FINISHED PT TOLERATED WELL. MINIMAL HYPOTENSION DURING TREATMENT. DIALYSIS NURSE REPORTS 2.1L REMOVED. FAMILY AT BS. STATES UNDERSTANDING OF PROCEDURE.
--- NOTE | 2021-08-11 16:50 | NUR ---
PT REPOSITIONED TO THE RIGHT SIDE, SUCTIONED, ORAL CARE PREFORMED. VERSED ATTEMPTED TO BE TURNED OFF, PT COUGHING AND GAG REFLEX INVOLVMENT WITNESSED WHILE VERSED OFF. PUMP TURNED BACK ONTO INITIAL TITRATION SETTINGS. PT VSS, DOES NOT APPEAR TO BE IN ANY TYPE OF DISTRESS.
--- NOTE | 2021-08-11 18:25 | NUR ---
NEW BAG OF VERSED HUNG AT THIS TIME, PT TOLERATING 1MG/HR. PEÑALOZA EMPTIED 250CC REMOVED. FAMILY UPDATED TO POC. PT VSS, DOES NOT APPEAR TO BE IN DISTRESS. MONITORING MAYA.
--- NOTE | 2021-08-11 19:00 | NUR ---
REPORT RECEIVED FROM Marino CLOUD RN AT BEDSIDE. CARE OF PT ASSUMED AT THIS TIME.
--- NOTE | 2021-08-11 20:00 | NUR ---
PROPOFOL TUBING CHANGED. PROPOFOL DECREASED TO 70mcg/kg/h. RASS-4.
--- NOTE | 2021-08-11 21:00 | NUR ---
FIO2 DECREASED TO 30% BY Derick HEWITT SWEATBAND FLANGER, SP02 100%.
--- NOTE | 2021-08-11 22:20 | NUR ---
PROPOFOL DECREASED TO 65mcg/kg/min. RASS -4.
--- NOTE | 2021-08-11 23:01 | NUR ---
PROPOFOL DECREASED TO 60mcg/kg/min. RASS -4.
[2021-08-12] VITALS (48 sets, daily range): BP systolic 101–131; BP diastolic 68–89
--- NOTE | 2021-08-12 01:55 | NUR ---
PROPOFOL DECREASED TO 55mcg/kg/min. RASS -4.
--- NOTE | 2021-08-12 03:02 | NUR ---
PROPOFOL DECREASED TO 50mcg/kg/min. RASS -4.
--- NOTE | 2021-08-12 04:08 | NUR ---
VERSED DECREASED TO 5ML/H. RASS -4. LABS COLLECTED FROM RIGHT GROIN TRIALYSIS CATHETER W/O DIFFICULTY.
--- NOTE | 2021-08-12 04:32 | NUR ---
B. HEWITT TAPING FOREMAN IN ROOM COLLECTING ABG.
[2021-08-12 05:14] LABS: HEMATOCRIT 24.9 % (37.0-47.0); HEMOGLOBIN 7.6 g/dl (12.0-16.0); IMMATURE GRANULOCYTES 0.4 % (0.0-5.0); MEAN CELL VOLUME 95.4 fL CALC (80.0-100.0); MEAN CORPUSCULAR HGB 29.1 pG CALC (26.0-32.0); MEAN CORPUSCULAR HGB CONC 30.5 g/dL CAL (32.0-36.0); NEUT# 5.61 thou/uL (2.00-7.15); RED BLOOD COUNT 2.61 mill/uL (4.20-5.60)
--- NOTE | 2021-08-12 05:15 | NUR ---
PCXR IN ROOM.
[2021-08-12 05:34] LABS: BILIRUBIN, TOTAL 0.3 mg/dL (0.0-1.4)
[2021-08-12 05:40] LABS: CREATININE 4.6 mg/dL (0.5-1.0); TOTAL PROTEIN 5.6 g/dL (6.3-8.2)
--- NOTE | 2021-08-12 06:00 | NUR ---
PROPOFOL DECREASED TO 55mcg/kg/min. VERSED GTT HELD. RASS -4. BEDSCALE WEIGHT 70.3KG. OG OUTPUT, 50ML "COFFEE GROUND"/DARK BROWN DRAINAGE. PEÑALOZA CATH OUTPUT 450ML CLEAR, PALE YELLOW URINE. TOTAL IV MED INPUT 462ML.
--- NOTE | 2021-08-12 08:00 | NUR ---
PATIENT IS VENTED, SEDATED, 4MM PERRL BILAT EYES. ORAL CARE PROVIDED. CLEAR LUNG SOUNDS SLIGHTLY DIMISNHED LUNG SOUNDS IN BOTTOM BASES. NORMAL HEART SOUNDS. VITALS ARE STABLE. HYPOACTIVE BOWEL SOUNDS. SOFT NON DISTENDED ABDOMEN. NG TUBE PATENT. +1 EDMEA BILAT LOWER LEGS. +2 PITTING EDEMA LEFT ANKLE AND FOOT. RIGHT FOOT/ANKLE 4+. STRONG PULSES BESDIES RIGHT FOOT WAS WEAK. SCD'S IN PLACE. SAFETY MEASURES IN PLACE. WILL CONTINUE TO MONITOR PER HOSPITAL'S POLICY.
--- NOTE | 2021-08-12 12:37 | NUR ---
UPDATED PATIENT'S AT BEDSIDE "ASIF", HE STATED HE UNDERSTOOD.
--- NOTE | 2021-08-12 15:00 | NUR ---
PATIENT TOLERATED SEDATION VACATION.
--- NOTE | 2021-08-12 16:11 | NUR ---
CONTINUES TO TOLERATE TUBE FEEDING WELL, 10-20CC RETURN.
--- NOTE | 2021-08-12 18:22 | NUR ---
PATIENT'S FEEDING STOPPED, BECAME TOO WET, SUCTIONING OFTEN. NG TUBE PLACEMENT IS STILL PATENT. HOLDING FEED, WILL INFORM NIGHT NURSE.
[2021-08-13] VITALS (56 sets, daily range): BP systolic 94–156; BP diastolic 65–106
--- NOTE | 2021-08-13 04:57 | NUR ---
BENCH PRESS OPERATOR AT BEDSIDE COLLECTING AM LABS.
--- NOTE | 2021-08-13 05:07 | NUR ---
PCXR AT [facility].
[2021-08-13 05:17] LABS: HEMATOCRIT 26.2 % (37.0-47.0); HEMOGLOBIN 7.8 g/dl (12.0-16.0); IMMATURE GRANULOCYTES 0.4 % (0.0-5.0); MEAN CORPUSCULAR HGB 28.9 pG CALC (26.0-32.0); MEAN CORPUSCULAR HGB CONC 29.8 g/dL CAL (32.0-36.0); NEUT# 5.69 thou/uL (2.00-7.15); RED BLOOD COUNT 2.7 mill/uL (4.20-5.60)
--- NOTE | 2021-08-13 05:23 | NUR ---
B. HEWITT HAIRSPRING VIBRATOR AT BEDSIDE COLLECTING ABG.
[2021-08-13 05:46] LABS: ALBUMIN 2.9 g/dL (3.2-5.0); POTASSIUM 3.7 mmol/l (3.5-5.1)
[2021-08-13 05:48] LABS: CREATININE 5.9 mg/dL (0.5-1.0)
--- NOTE | 2021-08-13 05:56 | NUR ---
650 ML CLEAR PALE YELLOW URINE EMPTIED FROM PEÑALOZA. AM BED SCALE WEIGHT 69.2KG. SHIFT TOTAL IV INPUT 400ML. VERSED GTT HELD AT THIS TIME. PROPOFOL REMAINS INFUSING 45mcg/KG/min.
--- NOTE | 2021-08-13 08:00 | NUR ---
PATIENT IS VENTED, SEDATED, 4MM PERRL BILAT EYES. ORAL CARE PROVIDED. CLEAR LUNG SOUNDS. ACTIVE BOWEL SOUNDS. PATENT NG TUBE. SOFT NON DISTENDED BOWEL SOUNDS. SUCTION PRN. 1+ EDEMA BLE, 1 TO 2 + ON BILATERAL ANKLES/FEET. PALPABLE PULSES. WILL BE RECIVING DIALYSIS TODAY. SAFETY MEASURES IN PLACE. WILL CONTINUE TO MONITOR PER HOSPITAL'S POLICY.
--- NOTE | 2021-08-13 09:15 | NUR ---
SPOKE TO ASIF THE "", CODE PROVIDED, UPDATE GIVEN.
--- NOTE | 2021-08-13 13:45 | NUR ---
SPOKE TO THE JOSUÉ VIDAL, CODE PROVIDED. UPDATE GIVEN.
--- NOTE | 2021-08-13 16:00 | NUR ---
SPOKE WITH RT, WILL START TO TITRATE PROP DOWN PER HOSPITAL'S PROTOCOL IN ORDER TO WAKE HER UP.
--- NOTE | 2021-08-13 17:10 | NUR ---
PATIENT WAKE TRAIL WAS UNSUCCESSFUL, PATIENT COULDNT CONTROL HER EYE MOVEMENT, WOULD OPEN HER EYES, IRIS WAS AT THE BACK OF THE HEAD, NOT FOLLOWING COMMANDS. RT STATED THEY WILL TRY AGAIN TOMORROW.
--- NOTE | 2021-08-13 17:10 | NUR ---
SBT TRIAL ATTEMPTED WITH PATIENT FOLLOWING DIALYSIS. RT REMAINED AT BESIDE WE WEANED OFF SEDATION AND TRIED TO WAKE PATEINT FOR THE TRIAL. AFTER 20 MINUTES PT WOULD HALF OPEN EYES, BUT EYES WERE ROLLED BACK. RN/RT CONTINUED TO MONITOR PATEINT FOR A TOTAL OF 40 MINUTES WITH SEDATION WEANED OFF. PT REMAINED ATTEMPTING TO OPEN EYES WITH EYES ROLLED BACK, THEN WOULD CLOSE THEM AND ROLL HER HEAD TO THE SIDE. RN/RT AGREED THAT PATIENT WAS NOT RESPONSIVE ENOUGH TO MOVE FORWARD WITH THE SBT TRIAL.
--- NOTE | 2021-08-13 17:57 | NUR ---
DR. DILL AT BEDSIDE INFORMED THE "ASIF" ABOUT THE WAKENING PROCESS, AND THAT WE WILL TRY AGAIN TOMORROW.
--- NOTE | 2021-08-13 18:02 | NUR ---
FUENTES WANTS TO TITRATE SEDATION OFF BY 0500 TO START WAKING TRIAL EARLY TOMORROW. WILL INFORM NIGHT NURSE TO INFORM MORNING NURSE
--- NOTE | 2021-08-13 19:45 | NUR ---
vent cont assisted by pt. coarse breath sounds bilat. nuclear monitoring technician shows sinus rhythm. ivf infusing well. faustin cath in place. urine clear yellow. fall precautions & bilat wrist restraints cont. turned & repositioned. requires total care for all needs.
--- NOTE | 2021-08-13 22:00 | NUR ---
vent cont. residential monitor shows sinus rhythm.
[2021-08-14] VITALS (46 sets, daily range): BP systolic 119–162; BP diastolic 76–101
--- NOTE | 2021-08-14 02:00 | NUR ---
vent cont assisted by pt. faustin draining well.
--- NOTE | 2021-08-14 03:30 | NUR ---
bath & linen change x2 assists.
--- NOTE | 2021-08-14 04:00 | NUR ---
blood drawn & sent to lab.
--- NOTE | 2021-08-14 05:00 | NUR ---
xray here. pcxr obtained.
--- NOTE | 2021-08-14 05:15 | NUR ---
rt here. abgs drawn.
[2021-08-14 05:29] LABS: ALBUMIN 3.1 g/dL (3.2-5.0); POTASSIUM 3.4 mmol/l (3.5-5.1)
[2021-08-14 05:44] LABS: CREATININE 3.4 mg/dL (0.5-1.0)
--- NOTE | 2021-08-14 09:07 | NUR ---
PT WEANED OFF SEDATION SLOWLY SINCE 5AM. PT PLACED ON SBT TRIAL AT 0726 AND MONITORED.PT SUCTIONED X 3. LARGE AMOUNTS OF MICHELLE/YELLOW SECRETIONS RECOVERED. PT WAS DOING WELL WITH THE TRIAL INITIALLY, BUT STILL WOULD NOT FOLLOW COMMANDS. AT 0841 PT BEGAN TO DESAT, AND RESPIRATORY RATE INCREASED DRAMATICALLY. VT ALSO WAS NOT A SIGN OF EFFECTIVE BREATHING. DR DILL CAME TO BEDSIDE. TRIAL TREMINATED AT THIS TIME, WOULD LIKE FOR US TO TRY AGAIN LATER TODAY. PT SUCTIONED AGIAN, TO RECOVER MODERATE MICHELLE/YELLOW SECRETIONS. SEDATION INCREASED AND FIO2 TEMPORARILY INCREASED TO 75% TO ALLOW PT TO RECOVER. PT IS NOW BACK ON PREVIOUS SETTINGS. RN/RT TO CONTINUE TO EVAULATE PATIENTS RESPIRATORY STATUS.
--- NOTE | 2021-08-14 15:43 | NUR ---
SBT TRAIL ATTEMPTED AGAIN AT 0215. FROM A RESPIRATORY STAND POINT PT DID WELL DURING THIS TRIAL. VT [phone], RR 16-21 SATS 98%. PT WOULD NOT RESPOND TO COMMANDS. RN AND ICU DIRECTOR UPDATED, AND EVALUATED PATIENT. WE WERE ALL IN AGREEMENT THAT IT WAS SAFER FOR THE PATIENT TO NOT BE EXTUBATED AT THIS TIME. PT RETURNED TO PREVIOUS SETTINGS AND SEDATION INCREASED. RN/RT TO CONTINUE MONITOR PATEINT.
--- NOTE | 2021-08-14 15:59 | NUR ---
Pt screened for OT eval, she would benefit from skilled OT intervention, if team agrees, to prevent UE contractures and pressure wounds.
--- NOTE | 2021-08-14 19:45 | NUR ---
vent cont assisted by pt. has left foot on floor. repositioned in bed. bus driver/monitor shows sinus tach. ivf infusing well. faustin cath in place. urine clear yellow. bilat wrist restraints, scd & fall precautions cont. requires total care for all needs.
--- NOTE | 2021-08-14 22:00 | NUR ---
VENT CONT ASSISTED BY PT. MOVES IN RESPONSE TO PAIN.
[2021-08-15] VITALS (47 sets, daily range): BP systolic 87–147; BP diastolic 51–102
--- NOTE | 2021-08-15 00:01 | NUR ---
eyes closed. no distress. faustin draining well.
--- NOTE | 2021-08-15 02:00 | NUR ---
vent cont assisted by pt. equipment monitor phototypesetting shows sinus tach.
--- NOTE | 2021-08-15 04:00 | NUR ---
blood drawn & sent to lab. bath & linen change x2 assists.
[2021-08-15 05:47] LABS: HEMATOCRIT 27.5 % (37.0-47.0); HEMOGLOBIN 8.2 g/dl (12.0-16.0); MEAN CELL VOLUME 97.2 fL CALC (80.0-100.0); MEAN CORPUSCULAR HGB CONC 29.8 g/dL CAL (32.0-36.0); RED BLOOD COUNT 2.83 mill/uL (4.20-5.60); RED CELL DISTRI WIDTH 15.8 % (11.5-15.5)
--- NOTE | 2021-08-15 06:00 | NUR ---
computer salesperson retail shows sinus tach. nad.
[2021-08-15 06:11] LABS: ALBUMIN 3.2 g/dL (3.2-5.0); POTASSIUM 3.3 mmol/l (3.5-5.1)
[2021-08-15 06:22] LABS: BILIRUBIN, TOTAL 0.6 mg/dL (0.0-1.4); CREATININE 4.7 mg/dL (0.5-1.0)
--- NOTE | 2021-08-15 07:00 | NUR ---
pt remains on bipap, diprovan infusing at 15 per political advisor nurse. no change in her condition from yesterday.
--- NOTE | 2021-08-15 08:45 | NUR ---
DIALYSIS NURSE AT BEDSIDE TO START PROCEDURE.
--- NOTE | 2021-08-15 09:45 | NUR ---
DIALYSIS STOPPED BECAUSE OF DIALYSIS CATHETER HAD CLOTTED OFF . NOTIFIED. AND DR. DILL SPEAKING TO DR. OTT.
[2021-08-15 10:49] LABS: HEMATOCRIT 27.1 % (37.0-47.0); IMMATURE GRANULOCYTES 0.5 % (0.0-5.0); MEAN CELL VOLUME 98.5 fL CALC (80.0-100.0); MEAN CORPUSCULAR HGB 29.1 pG CALC (26.0-32.0); MEAN CORPUSCULAR HGB CONC 29.5 g/dL CAL (32.0-36.0); NEUT# 10.29 thou/uL (2.00-7.15); RED BLOOD COUNT 2.75 mill/uL (4.20-5.60); RED CELL DISTRI WIDTH 15.9 % (11.5-15.5)
--- NOTE | 2021-08-15 10:55 | NUR ---
AWAITING TO SPEAK WITH DR. BROWN ABOUT POSSIBLE DIALYSIS CATH PLACEMENT.
--- NOTE | 2021-08-15 12:11 | NUR ---
SURGERY CONSENT SIGNED AND LAURA HULL FROM OR CAME UP AND SPOKE WITH PT FAMILY. DR. OTT AT BEDSIDE. PT IS TO GO TO OR FOR CATHETER REPLACEMENT IN AROUND AN HOUR
--- NOTE | 2021-08-15 13:06 | NUR ---
PT TO OR WITH OR TEAM, DIPROVAN AT 45 MCG PT STILL FLUTTERING EYELIDS AND MOVING RAISA LOWER LEGS
--- NOTE | 2021-08-15 15:34 | NUR ---
REASSESSMENT OF PT , PT VITAL SIGNS REMAIN STABLE AFTER CATHETER PLACEMENT. CHEST XRAY OBTAINED, PT REMAINS ON DIPROVAN DRIP,
--- NOTE | 2021-08-15 18:27 | NUR ---
family at bedside, pt assessment done and vital signs stable. diprovan is infusing at 40 with ns at k[facility], advised family that dialysis would be done tomorrow with possible extubation trial again.
--- NOTE | 2021-08-15 18:50 | NUR ---
REPORT RECEIVED FROM Sakshi HEREDIA RN. CARE OF PT ASSUMED AT THIS TIME. VISITORS SITTING AT BEDSIDE WITH PT.
--- NOTE | 2021-08-15 20:38 | NUR ---
PROPOFOL TUBING CHANGED. PROPOFOL INFUSING AT 40mcg/Kg/Min. RASS -3.
[2021-08-16] VITALS (49 sets, daily range): BP systolic 107–145; BP diastolic 69–100
--- NOTE | 2021-08-16 05:07 | NUR ---
Marino BACA AT BEDSIDE COLLECTING AM LABS.
--- NOTE | 2021-08-16 05:40 | NUR ---
PCXR AT BEDSIDE.
--- NOTE | 2021-08-16 05:54 | NUR ---
BED SCALE 59.3 KG. 200ML CLEAR YELLOW URINE EMPTIED FROM PEÑALOZA. 100ML GREEN OUTPUT FROM OG TUBE.
--- NOTE | 2021-08-16 06:00 | NUR ---
Tere SMITH SHRIMP BOAT CAPTAIN AT BEDSIDE COLLECTING ABG.
[2021-08-16 06:01] LABS: HEMATOCRIT 27.3 % (37.0-47.0); HEMOGLOBIN 7.9 g/dl (12.0-16.0); MEAN CELL VOLUME 99.6 fL CALC (80.0-100.0); MEAN CORPUSCULAR HGB 28.8 pG CALC (26.0-32.0); MEAN CORPUSCULAR HGB CONC 28.9 g/dL CAL (32.0-36.0); RED BLOOD COUNT 2.74 mill/uL (4.20-5.60); RED CELL DISTRI WIDTH 16.2 % (11.5-15.5)
[2021-08-16 06:09] LABS: ALBUMIN 2.9 g/dL (3.2-5.0); CREATININE 4.9 mg/dL (0.5-1.0)
--- NOTE | 2021-08-16 06:14 | NUR ---
ATTEMPTS TO WEAN PROPOFOL FAILED. DECREASE FROM 45 TO 4OMCG/KG/MIN RESULTS IN AGITATION AND INCREASE IN NIBP. PROPOFOL INCREASED TO 45MCG/KG/MIN.
[2021-08-16 06:26] LABS: POTASSIUM 3.4 mmol/l (3.5-5.1)
--- NOTE | 2021-08-16 06:44 | NUR ---
pt recieved on all documented paramaters. nad. vss. tool and die supervisor to monitor.
--- NOTE | 2021-08-16 07:00 | NUR ---
PT IS ON VENT, PT NOT RESPONDING TO ANY STIMULI, PT HAS BEEN CLEANED, REPOSITIONED. PT VSS. PT ASSESSMENT DONE. PT IS IN BILATERAL RESTARINTS, NO SKIN BREAK DOWN NOTATED, WILL CONTINUE TO MONITOR.
--- NOTE | 2021-08-16 10:11 | NUR ---
pt c nad. vss. resting comfortably. no acute changes. infrastructure engineer to monitor.
--- NOTE | 2021-08-16 10:14 | NUR ---
PT HAS NO CHANGE TO ASSESSMENT, PT HAS BEEN REPOSITIONED, PO CARE PROVIDED, WILL CONTINUE TO MONITOR.
--- NOTE | 2021-08-16 10:45 | NUR ---
HD RN AT BEDSIDE.
--- NOTE | 2021-08-16 11:30 | NUR ---
PROVIDED PT UPDATE TO FAMILY.
--- NOTE | 2021-08-16 13:00 | NUR ---
PT RECEIVING DIALYSIS. PT HAS NO CHANGE TO ASSESSMENT. PT HAS BEEN REPOSITIONED. PT IS CLEAN AND DRY. PT SHOWS NO SIGN OF PAIN. PT MONITORED CLOSELY.
--- NOTE | 2021-08-16 14:57 | NUR ---
PT COMPLETED HD, RN REMOVED 2900ML OFF. PT VS B/P 133/95, HR 100 O2 96% PT IS BEING CLOSELY MONITORED.
--- NOTE | 2021-08-16 17:02 | NUR ---
PT SET UP TO INT SUCTION @ 20, NEW CANNITSER AND TUBING PLACED.
--- NOTE | 2021-08-16 17:14 | NUR ---
PT HAS FAMILY AT BEDSIDE.PT HAS NO CHANGE TO ASSSESSMENT. PT HAS BEEN CLEANED AND REPOSITIONED. PT WILL CONTINUED TO BE MONITORED. '
--- NOTE | 2021-08-16 19:00 | NUR ---
REPORT RECEIVED FROM Sakshi HEREDIA RN. CARE OF PT ASSUMED AT THIS TIME.
--- NOTE | 2021-08-16 20:00 | NUR ---
PT TURNED AND REPOSITIONED. ORAL SUCTIONING AND ET SUCTIONING PERFORMED. ORAL CARE PERFORMED.
--- NOTE | 2021-08-16 22:00 | NUR ---
PT TURNED AND REPOSITIONED. ORAL SUCTIONING AND ET SUCTIONING PERFORMED. ORAL CARE PERFORMED.
[2021-08-17] VITALS (60 sets, daily range): BP systolic 87–157; BP diastolic 57–105
--- NOTE | 2021-08-17 | NUR ---
PT TURNED AND REPOSITIONED. ORAL SUCTIONING AND ET SUCTIONING PERFORMED. ORAL CARE PERFORMED.
--- NOTE | 2021-08-17 02:00 | NUR ---
PT TURNED AND REPOSITIONED. ORAL SUCTIONING AND ET SUCTIONING PERFORMED. ORAL CARE PERFORMED.
--- NOTE | 2021-08-17 04:00 | NUR ---
PT TURNED AND REPOSITIONED. ORAL SUCTIONING AND ET SUCTIONING PERFORMED. ORAL CARE PERFORMED.
--- NOTE | 2021-08-17 04:37 | NUR ---
Sakshi MUNOZ CPT IN ROOM COLLECTING AM LABS.
--- NOTE | 2021-08-17 05:00 | NUR ---
PCXR AT BEDSIDE BY JCD.
[2021-08-17 05:03] LABS: HEMATOCRIT 32.3 % (37.0-47.0); HEMOGLOBIN 9.6 g/dl (12.0-16.0); MEAN CELL VOLUME 97.6 fL CALC (80.0-100.0); MEAN CORPUSCULAR HGB CONC 29.7 g/dL CAL (32.0-36.0); RED BLOOD COUNT 3.31 mill/uL (4.20-5.60); RED CELL DISTRI WIDTH 16.1 % (11.5-15.5)
--- NOTE | 2021-08-17 05:33 | NUR ---
Tere SMITH DEBONING TEAM LEADER AT BEDSIDE OBTAINING ABG.
--- NOTE | 2021-08-17 06:00 | NUR ---
PT TURNED AND REPOSITIONED. ORAL SUCTIONING AND ET SUCTIONING PERFORMED. ORAL CARE PERFORMED.
[2021-08-17 06:17] LABS: POTASSIUM 3.6 mmol/l (3.5-5.1)
[2021-08-17 06:18] LABS: ALBUMIN 3.6 g/dL (3.2-5.0); CREATININE 3.2 mg/dL (0.5-1.0)
--- NOTE | 2021-08-17 06:28 | NUR ---
BED SCALE WEIGHT 57.3KG. TOTAL IV MED INPUT 270ML. TOTAL OG OUTPUT 700ML. TOTAL URINE OUTPUT 50ML.
--- NOTE | 2021-08-17 07:48 | NUR ---
PT PLACED ON SBT. NAD. 5/5 MV=7L PIP 8. MAP =5. F=20, HR 102. SPO2 97. LINOLEUM FLOOR INSTALLER TO MONITOR.
--- NOTE | 2021-08-17 08:15 | NUR ---
PT HAD BEEN ON SBT TRIAL FOR 45 MINUTES. PT MET ALL RESPIRATORY PARAMETERS FOR EXTUBATION WITH VT [phone] RR 20-23. DR. DILL CONTACTED FOR EXTUBATION ORDER PATIENT WAS NOW FOLLOWING COMMANDS. PT SUCCESSFULLY EXTUBATED TO 3 LITER NASAL CANNULA. SATS 97%. RN/RT TO CONTINUE MONITORING RESPIRATORY STATUS.
--- NOTE | 2021-08-17 08:29 | NUR ---
RT & PHYS. AT BEDSIDE FOR EXTUBATION. PT TOLERATED WELL. PT FOLLOWING MINIMAL COMMANDS, PT PLACED ON NC 2.5L. PT RESTRAINTS REMOVED, AND FEMORAL LINE REMOVED. PT VSS.
--- NOTE | 2021-08-17 08:30 | NUR ---
CALLED THE MOTHER "NEXT OF KIN", PHONE NUMBER OUT OF ORDER. CALLED HER BOYFRIEND "ASIF", INFORMED HIM OF THE UPDATE, EXTUBATION. CALLED HER NIECE "RAJ", LEFT VOICEMAIL FOR A CALL BACK.
--- NOTE | 2021-08-17 10:00 | NUR ---
PT RESPONDING MORE TO VERBAL STIMULI. PT HAS SPOUSE AT BEDSIDE. PT O2 SAT IS GOOD MAINTAINING 100% ON 2.5LNC. PT VSS. PT HAS BEEN REPOSITIONED, PT REMAINS CLEAN. ALL NEEDS HAVE BEEN ADDRESSED. WILL CONTINUE TO MONITOR.
--- NOTE | 2021-08-17 12:00 | NUR ---
PT HAS NO CHANGE, PT HAS SPOUSE AT BEDSIDE, PT FOLLOWING COMMANDS. NODS APPROPRIATELY. PT VSS, PT REMAINS ON 2.5LNC. MONITORING PT CLOSELY.
--- NOTE | 2021-08-17 14:14 | NUR ---
PT HAS FAMILY AT BEDSIDE, PT IS NOW TRYING TO TALK. VERY LITTLE WORDS WERE SPOKEN. PT IS ORIENTED TO SELF, UNAWARE OF TIME. PT NOW RECEIVING DIALYSIS. VSS. PT BEING MONITORED CLOSELY.
--- NOTE | 2021-08-17 16:19 | NUR ---
PT IS RECEIVING DIALYSIS, PT HAS BROTHER AT BEDSIDE. PT MOST ALERT, MAKING CONVERSATION. PT BEING CLOSELY MONITORED.
--- NOTE | 2021-08-17 17:30 | NUR ---
PT COMPLETED DIALYSIS, REMOVED 1.5L, PT HAD A HYPOTENSIVE EPISODE, PT RESPONSIVE, AND ASYMPTOMATIC. BP RECYCLED AND BP IMPROVED. VS CHARTED.
--- NOTE | 2021-08-17 18:38 | NUR ---
PT HAS FAMILY AT BESIDE, PT IS VERBALLY AGRESSIVE, PT UNAWARE OF LOCATION. PT FOLLOWING COMMANDS, PT VSS, PT SHAKES HEAD NO TO ANY PAIN.
--- NOTE | 2021-08-17 19:00 | NUR ---
PT RESTING IN BED FAMILY AT BEDSIDE, PT ABLE TO CONVERSE WITH FAMILY. NO SIGNS OF DISTRESS NOTED, RESP EVEN AND UNLABORED. PT SPO2 100% ON 2.5 L NC. CALL LIGHT IN REACH,CONTINUE TO MONITOR.
--- NOTE | 2021-08-17 20:00 | NUR ---
PT RESTING IN BED, NO SIGNS OF DISTRESS NOTED, RESP EVEN AND UNLABORED. 02 2.5L NC SATS 100% 02 TITRATED TO 2L NC, PT DROWSY AND LETHARGIC, ABLE TO FOLLOW COMMANDS, WEAK RESIDENTIAL HOUSEKEEPER AND EXTREMITIES DRIFT DOWN TO BED. PEÑALOZA DRAINING TO GRAVITY, PATENT. IV SITE TO RAC FLUSHED WELL, L HAND INFILTRATED AND PAINFUL NOTED BY PT STATING "OW" WHEN ATTEMPTING TO FLUSH, IV SITE REMOVED, CATHETER INTACT, NO BLEEDING NOTED. HEMODIALYSIS LINE TO R CHEST, DRESSING CDI SCD'S IN PLACED, NOTED TRACE EDEMA TO BLE ELEVATED IN PILLOWS. ASSESSMENT REVIEW COMPLETED, CALL LIGHT IN REACH, BED ALARM FOR SAFETY, CONTINUE TO MONITOR.
--- NOTE | 2021-08-17 21:50 | NUR ---
PT YELLING OUT "YOU'RE LYING" PT CONFUSED DOES NOT BELIEVE SHE IS AT THE HOSPITAL. PT MOVING RIGHT LEG OFF THE BED, REPLACED LEG ONTO BED ELEVATED WITH PILLOW, BED ALARM FOR SAFETY, CALL LIGHT WITHIN REACH, CONTINUE TO MONITOR.
--- NOTE | 2021-08-17 23:36 | NUR ---
PT TEARFUL, CONFUSED AND KEEPS REMOVING RIGHT ARM LEAD, INSTRUCTED PT TO LEAVE IT IN PLACE, ORIENTED PT TO PLACE, PT DOES NOT BELIEVE SHE IS IN THE HOSPITAL. BED ALARM IN PLACE, CALL LIGHT IN REACH,CONTINUE TO MONITOR.
[2021-08-18] VITALS (29 sets, daily range): BP systolic 112–153; BP diastolic 57–106
--- NOTE | 2021-08-18 02:00 | NUR ---
PT CONTINUES TO CRY AND YELL OUT, STATES "THEY ARE GOING TO KILL ME" STATES SHE IS NOT AT THE HOSPITAL. ATTEMPTS TO CONSOLE PT UNSUCCESSFUL, DUE TO SEVERITY OF ILLNESS AT THIS TIME. BED ALARM IN PLACE. CALL LIGHT IN REACH,CONTINUE TO MONITOR.
--- NOTE | 2021-08-18 05:04 | NUR ---
PACKAGE SEALER AT BEDSIDE FOR AM LABS, CONTINUE TO MONITOR.
--- NOTE | 2021-08-18 05:10 | NUR ---
COLLECTION TECHNICIAN STATES PT REFUSED LABS. DISCUSSED WITH PT REGARDING LABS, PT STATES,"NO!," THAT SHE IS GOING HOME. WILL RELAY TO AM NURSE. PT CONFUSED AT THIS TIME. NOTED PT HAD A BM, BED BATH COMPLETED, NOTED REDNESS TO BUTTOCK AREA BARRIER CREAM APPLIED. PEÑALOZA CARE DONE, BED ALARM IN PLACE, CALL LIGHT IN REACH,CONTINUE TO MONITOR.
--- NOTE | 2021-08-18 07:35 | NUR ---
REPORT RECEIVED FROM PM NURSE. PT ASSESSMENT DONE, PT IS ALERT TO SELF AND PLACE, UNAWARE OF TIME. PT IS CALM AT THIS TIME. PT ON 1.5L NC, O2 SAT 99. PT RESPONDS APPROPRIATELY AND FOLLOWS COMMANDS, PT STATES NO TO ANY PAIN OR SOB. PT VSS, PT BEING CLOSELY MONITORED.
--- NOTE | 2021-08-18 08:14 | NUR ---
PT ATTEMPTING TO GET OOB, PT STATING "SHE WANTS TO GO HOME," PT REORIEMTED TO PLACE, PT STATES "SHE DOESN'T CARE, SHE IS LEAVING." RN SITTING AT BEDSIDE.
--- NOTE | 2021-08-18 09:15 | NUR ---
AT BEDSIDE, DISCUSSED POC, WILL TRY TO FEED PT STARTING WITH SOFT FOODS, AND GET OOB TO CHAIR. PT AGREED.
--- NOTE | 2021-08-18 09:26 | NUR ---
code tristen. update was given to her boyfriend/ "masoud" . he stated he will be coming by around 03/1130 today to visit her. informed her nurse that I gave him an update.
--- NOTE | 2021-08-18 10:07 | NUR ---
ASSISTED PT WITH OATMEAL, PT VERY WEAK WASN'T ABLE TO FEED HERSELF, PT REQUIRES ASSISTANCE WITH MEALS. PT HAD NO DIFFICULTIES SWALLOWING SOFT FOODS.
--- NOTE | 2021-08-18 10:36 | NUR ---
PT HAS BEEN CLEANED UP, AND MOVED TO CHAIR. PT REQUIRED 2 PERSON ASSIST, GAIT UNSTEADY AND PT HAS MODERATE WEAKNESS. PT HAS LETY ALARM IN PLACE, AND BEING CLOSELY MONITORED.
--- NOTE | 2021-08-18 12:05 | NUR ---
PT MORE ALERT, ANSWERS QUESTIONS APPROPRIATELY, FOLLOWS COMMANDS. PT ASSISTED WITH LUNCH, PT ON MECHANICAL SOFT DIET, PT IS TOLERATING WELL. PT HAS FAMILY AT BEDSIDE, FAMILY WANTS TO ASSIST PT WITH MEAL FAMILY INSTRUCTED SMALL BITES. PT BEING CLOSELY MONITORED.
--- NOTE | 2021-08-18 13:46 | NUR ---
PT TRANSFERRED TO MED/SURG. REPORT GIVEN TO NURSE MINER. PT ASSISTED TO CHAIR, PT ON RA. PT SPOUSE PRESENT ON TRANFER.
--- NOTE | 2021-08-18 15:23 | NUR ---
Patient arrived as in house transfer from ICU, at bedside, alert and oriented with generalized weakness. Mrs. Interiano was extubated 08/17/21 per clinical team, O2 sat 99-100% on room air, no signs of respiratory distress. Vital signs obtained, LCTA with dimished bilateral bases. Bowel sounds active x4 guadrants. No questions or concerns.
--- NOTE | 2021-08-18 18:12 | NUR ---
PATIENT UP IN RECLINER, AT BEDSIDE, VITAL SIGNS OBTAINED, ASSISTING WITH PATIENTS MEAL. NO QUESTIONS OR CONCERNS VERBALIZED TO THIS NURSE.
--- NOTE | 2021-08-18 19:45 | NUR ---
PT RESTING IN RECLINER ACCOMPANIED BY FAMILY. PT ASSISTEED TO BSC. VOICES NO PAIN OR DISCOMFORT AT THIS TIME. PATIENT ASSISTED BACK TO BED. CALL LIGHT IN REACH. CONTINUE TO MONITOR.
--- NOTE | 2021-08-18 21:30 | NUR ---
PT IN RESTING WITH EYES CLOSED RESP EVEN AND UNLABORED. PT DROWSY VITALS SIGNS WNL NON VERBAL. PEÑALOZA PATENT DRAINING BY GRAVITY. DIALYSIS CATHETER TO RIGHT UPPER CHEST DRESSING CDI. IV TO RAC AND FLUSHED WELL. NO SIGNS OF DISTRESS NOTED. CALL LIGHT IN REACH. CONTINUE TO MONITOR.
[2021-08-19] VITALS: BP 104/48
--- NOTE | 2021-08-19 | NUR ---
PT ASSISTED TO BSC, PT HAD A SMALL BM. NO SIGNS OF DISTRESS NOTED, RESP EVEN AND UNLABORED, CALL LIGHT IN REACH,CONTINUE TO MONITOR.
[2021-08-19 04:00] VITALS: BP 108/70
--- NOTE | 2021-08-19 04:45 | NUR ---
PATIENT IN BED RESINTING. PT DENIES PAIN OR DISCOMFORT AT THIS TIME. NO NEEDS OR COMPLAINTS VOICES. CALL LIGHT IN REACH. CONTINIUE TO MONITOR.
[2021-08-19 05:40] LABS: HEMATOCRIT 31.8 % (37.0-47.0); HEMOGLOBIN 9.5 g/dl (12.0-16.0); IMMATURE GRANULOCYTES 1.9 % (0.0-5.0); MEAN CELL VOLUME 96.4 fL CALC (80.0-100.0); MEAN CORPUSCULAR HGB 28.8 pG CALC (26.0-32.0); MEAN CORPUSCULAR HGB CONC 29.9 g/dL CAL (32.0-36.0); NEUT# 3.77 thou/uL (2.00-7.15); RED BLOOD COUNT 3.3 mill/uL (4.20-5.60); RED CELL DISTRI WIDTH 15.9 % (11.5-15.5)
[2021-08-19 06:05] LABS: MAGNESIUM 1.8 mg/dL (1.6-2.3); POTASSIUM 3.3 mmol/l (3.5-5.1)
[2021-08-19 06:15] LABS: CREATININE 6.8 mg/dL (0.5-1.0)
[2021-08-19 08:05] VITALS: BP 145/93
--- NOTE | 2021-08-19 08:05 | NUR ---
BED ALARM SOUNDING, UPON ENTERING ROOM PT TRYING TO SIT ON THE SIDE OF THE BED TO EAT BREAKFAST. PT ASSISTED TO THE SIDE OF THE BED, PT WEAK . PT ATTEMPTING TO EAT BREAKFAST ON HER OWN. PT ALERT AND ORIENTED. CLEAR/DIMINISHED BREATH SOUNDS UPON AUSCUTLATION. ACTIVE BOWEL SOUNDS X4 QUADRANTS. PEÑALOZA CATHETER IN PLACE, WITH MINIMAL AMOUNT OF DARK URINE NOTED IN COLLECTION BAG. SUPERVISOR COMMISSARY PRODUCTION IN PLACE. IV HEALTHY AND PATENT. TDC TO RIGHT UPPER CHEST WITH DRESSING CDI. PT ENCOURAGED TO GET CLEANED UP TODAY AND UP TO CHAIR. PT AGREEABLE TO PLAN. ASSESSMENT COMPLETED. DISCUSSED POC. CALL LIGHT WITHIN REACH. BED ALARM IN PLACE FOR SAFETY.
--- NOTE | 2021-08-19 09:48 | NUR ---
COMPLETE BED BATH GIVEN WITH THE ASSISTANCE OF Darryl FERGUSON CNA. BED LINENS CHANGED. PT ASSISTED UP TO BSC, SMALL LIQUID BM. PT ASSISTED WITH ADLS INCLUDING BRUSHING TEETH AND WASHING/COMBING HAIR. PT ENCOURAGED TO GET INTO CHAIR, PT WANTING TO GET BACK INTO BED. PT EDUCATED ON THE IMPORTANCE OF GETTING INTO CHAIR DURING LUNCH. PT AGREEABLE. BED RECONNECTED TO IV ABX, BED ALARM PLACED FOR SAFETY.
--- NOTE | 2021-08-19 10:10 | NUR ---
SIGNIFICANT OTHER AND FRIEND AT BEDSIDE VISITING WITH PATIENT.
--- NOTE | 2021-08-19 10:24 | NUR ---
DR BERRIOS ASSESSING AND DISCUSSING POC WITH PT AND FAMILY MEMBERS
--- NOTE | 2021-08-19 12:10 | NUR ---
PT SLEEPING IN BED AWAKENED TO TAKE MEDICATION. PT C/O OF HEARTBURN/INDIGESTION ORDER OBTAINED FOR PEPCID 20 MG PO X1 DOSE, ORDER WRITTEN AND FAXED TO PHARMACY. PT ABLE TO TAKE PO MEDICATIONS WITH APPLESAUCE. NO OTHER NEEDS AT THIS TIME. CALL LIGHT WITHIN REACH.
[2021-08-19 14:30] VITALS: BP 145/93
--- NOTE | 2021-08-19 16:52 | NUR ---
pt sitting in bed no distress noted. significant other at bedside visiting with patient. no needs at this time. call light within reach.
--- NOTE | 2021-08-19 19:00 | NUR ---
RECEIVED REPORT FROM NURSE WU, PATIENT IS RESTING IN BED, RESP EVEN AND UNLABORED, WITH FAMILY AT BEDSIDE, CALL LIGHT IN REACH, WILL CONTINUE TO MONITOR.
--- NOTE | 2021-08-19 20:00 | NUR ---
PATIENT RESTING IN BED WATCHING TV, BREATHING EVEN AND UNLABORED. PT ON TELE. PT HAS A PEÑALOZA CATHETER IN PLACE DRAINING BY GRAVITY, URINE DARK CESAR, SEDEMENT NOTED. PT HAS A IV TO RIGHT AC PATENT FLUSHING WELL. LUNGS SOUNDS CLEAR, O2 98% ROOM AIR. PT VOICE NO NEEDS OR CORCERNS AT THIS TIME. CALL LIGHT IN REACH. CONTINIUE TO MINITOR.
--- NOTE | 2021-08-19 20:52 | NUR ---
RECEIVED A PHONE CALL FROM ED TELE MONITOR SHOW ST CHANGES, PATIENT DENIES CHEST DISCOMFORTS VITALS TAKEN FOLLOWS: BP 126/86, HR 106, SPO2 99% ON ROOM AIR, EKG ORDERED.
--- NOTE | 2021-08-19 20:54 | NUR ---
RT IN ROOM AT THIS TIME, FOR EKG.
[2021-08-19 21:05] VITALS: BP 126/82
--- NOTE | 2021-08-19 21:06 | NUR ---
INFORMED MD PURCHASE REQUEST EDITOR ABOUT TELE CHANGES, EKG DONE RT TO UPLOAD AWAITING ORDERS.
--- NOTE | 2021-08-19 21:17 | NUR ---
NEW ORDER FOR POTASSIUM 10 MEQ X ONE TIME DOSE ORDERED.
[2021-08-19 23:51] VITALS: BP 124/81
--- NOTE | 2021-08-20 00:28 | NUR ---
PATIENT CURRENTLY IN BED RESTING WITH EYES CLOSED, BREATHING EVEN AND UNLABORED. NO S/S OF PAIN OR DISCOMFORT AT THIS TIME. CALL LIGHT IN REACH. CONTINIUE TO MONITOR.
[2021-08-20 04:35] VITALS: BP 124/82
--- NOTE | 2021-08-20 04:35 | NUR ---
PATIENT AWAKE IN BED, BREATHING EVEN AND UNLABORED, DENIES PAIN OR DISCOMFORT AT THIS TIME. CALL LIGHT IN REACH. CONITINUE TO MONITOR.
[2021-08-20 09:19] LABS: HEMATOCRIT 30.1 % (37.0-47.0); IMMATURE GRANULOCYTES 1.9 % (0.0-5.0); MEAN CELL VOLUME 96.5 fL CALC (80.0-100.0); MEAN CORPUSCULAR HGB 28.8 pG CALC (26.0-32.0); MEAN CORPUSCULAR HGB CONC 29.9 g/dL CAL (32.0-36.0); NEUT# 3.3 thou/uL (2.00-7.15); RED BLOOD COUNT 3.12 mill/uL (4.20-5.60)
--- NOTE | 2021-08-20 09:25 | NUR ---
DIALYSIS NURSE AT BEDSIDE. FOR TREATMENT.
--- NOTE | 2021-08-20 09:26 | NUR ---
PT SITTING IN [place] WATCHING TV AT THIS TIME. STATES NO PAIN AT THIS TIME JUST FEELING TIRED.. TELE MONITOR IN PLACE. CONTINOUS MONITORING PER ED. GLUCOSE CHECK: 81 THIS MORNING. PEÑALOZA IN PLACE DRAINING URINE VIA GRAVITY. URINE IS DARK TEA COLOR. PT HAS R CHEST TUNNEL FOR DIALYSIS TREATMENTS. AND A 20 RAC SL FLUSHED WITH NO RESISTANCE. PT ABLE TO TAKE MEDICATIONS WITH NO COMPLICATION. FALL/ SAFTEY PRECAUTION IN PLACE. CALL LIGHT IS WITHIN REACH
[2021-08-20 09:59] LABS: POTASSIUM 3.5 mmol/l (3.5-5.1)
[2021-08-20 10:16] LABS: CREATININE 8.6 mg/dL (0.5-1.0)
--- NOTE | 2021-08-20 12:45 | NUR ---
PT WAS ON BED SIDE COMMODE. PRIMARY NURSE AND DIALYSIS NURSE AND FAMILY MEMBER IN ROOM. PRIMARY NURSE AND DIALYSIS DISCUSSING POC. PT GETS UP FROM BSC WITH OUT ASKING FOR HELP. FAMILY MEMBER STATES " PTS KNEES GAVE OUT" WHEN TRYING TO GET OUT IF COMMODE. PRIMARY RN AND TAIL DOGGER WITNESS WHEN PT IS ON FLOOR. PT STATES OKAY . NOTIFIED MD VANG AND ARRIVED AT BEDSIDE. PT ALERT AND ORIENATED X3. VITAL SIGNS STABLE. PT STATES NO INJURIES. MD AWARE, PT CONSULTED DIALYSIS TREATMENT CONTINUES. CALL LIGHT WITHIN REACH. INCIDENT REPORT MADE.
[2021-08-20 14:05] VITALS: BP 105/66
[2021-08-20 15:09] VITALS: BP 104/65
[2021-08-20 19:32] VITALS: BP 109/71
--- NOTE | 2021-08-20 20:19 | NUR ---
REPORT GIVEN BY BELÉN PLASENCIA. PATIENT RESTING IN BED WATCHING TV WITH FAMILY PRESENT. FALL AND SAFTEY PRECAUTIONS IN PLACE. NO S/S OF DISTRESS NOTED. IV SALINE LOCKED. RIGHT CHEST WALL TUNNELED CATH FOR DIALYSIS PRESENT. PEÑALOZA DRAINING TO GRAVITY. NSR ON TELEMETRY. PLAN OF CARE DISUSSED. PATIENT INFORMED TO CALL WITH ANY QUESTIONS OR CONCERNS.
[2021-08-21 00:10] VITALS: BP 113/78
--- NOTE | 2021-08-21 01:31 | NUR ---
PATIENT RESTING WITH EYES CLOSED. RESP EVEN AND UNLABORED. NO S/S OF DISTRESS NOTED. FALL AND SAFTEY PRECAUTIONS IN PLACE.
--- NOTE | 2021-08-21 04:05 | NUR ---
PATIENT RESTING WITH EYES CLOSED. RESP EVEN AND UNLABORED. NO S/S OF DISTRESS NOTED. FALL AND SAFTEY PRECAUTIONS IN PLACE.
[2021-08-21 04:21] VITALS: BP 111/76
[2021-08-21 05:44] LABS: HEMOGLOBIN 8.8 g/dl (12.0-16.0); MEAN CELL VOLUME 96.3 fL CALC (80.0-100.0); MEAN CORPUSCULAR HGB 29.2 pG CALC (26.0-32.0); MEAN CORPUSCULAR HGB CONC 30.3 g/dL CAL (32.0-36.0); RED BLOOD COUNT 3.01 mill/uL (4.20-5.60); RED CELL DISTRI WIDTH 16.2 % (11.5-15.5)
[2021-08-21 05:53] LABS: MAGNESIUM 1.9 mg/dL (1.6-2.3); POTASSIUM 3.2 mmol/l (3.5-5.1)
[2021-08-21 06:04] LABS: CREATININE 8.1 mg/dL (0.5-1.0)
[2021-08-21 07:48] VITALS: BP 116/79
--- NOTE | 2021-08-21 08:27 | NUR ---
pt wtaching tv upon entering room. assessment and vitals allowed. faustin catheter in place draining urine via gravity showing tea colored urine. tele monitor in place, continous monitoring per ed. fall/saftey precaution in place. call light is within reach.
[2021-08-21 10:19] VITALS: BP 112/74
--- NOTE | 2021-08-21 11:03 | NUR ---
Pt resting in bed. Pt without complaints voiced, FIREMAN taking vs. Pt bed mobility min assist and verbal cues to roll side to side without use of bed rails. Min assist to sit over edge of bed, CGA for sittting balance. Transfer to BS chair with min assist, pt voice some fear of falling. Instructions required for proper techique such as push from bed to stand and reaching for chair prior to sitting. Gait with FIRST COOK of 1 x 30' in room and then 2 x 30 with CGA using RW. Pt gait tended to be gaurded. Pt performed 10 reps of heel slide, hip abd/add, marching and LAQ in chair. Written ex and instruction on pacing self and slowly progressing ex and activity. BP 112/74, HR 104 to 117, 02sats 97-99%. Pt left in chair with callbell/phone and tray in reach. FIREMAN aware that pt requested am care. A- Pt mobility improved today [facility] or home health. P- Continue to progress activity as tolerated.
--- NOTE | 2021-08-21 13:27 | NUR ---
PROTOZOOLOGIST ILEANA AT BEDSIDE
--- NOTE | 2021-08-21 15:30 | NUR ---
Pt undergoing dialysis treatment at time of OT's arrival. Will return at later time.
--- NOTE | 2021-08-21 18:24 | NUR ---
Discharge instructions given. Patient verbalizes understanding of same. Discharged in stable condition via Wheelchair to Home with [facility] staff. All belongings sent with pt. IV REMOVED CATHETER FULLY INTACT TELE MONITOR REMOVED
== END 2021-08-21 18:27 | disposition home or self-care (01) | DRG 207 ==
LOC: ED 05:30 → ED-I 06:50 → ED 06:59 → ICU 07:00 → MS2 08-18 13:47
PROVIDERS: Emergency Medicine; Internal Medicine; Internal Medicine Nephrology; ADMIT Hospitalist; ATTEND Internal Medicine
PROC: 5A09357 Assistance with Respiratory Ventilation, Less than 24 Consecutive Hours, Continuous Positive Airway Pressure (ICD-10-PCS; principal; 2021-08-10)
PROC: 5A1955Z Respiratory Ventilation, Greater than 96 Consecutive Hours (ICD-10-PCS; 2021-08-10)
PROC: 0T9B70Z Drainage of Bladder with Drainage Device, Via Natural or Artificial Opening (ICD-10-PCS; 2021-08-10)
PROC: 06HY33Z Insertion of Infusion Device into Lower Vein, Percutaneous Approach (ICD-10-PCS; 2021-08-10)
PROC: 0BH17EZ Insertion of Endotracheal Airway into Trachea, Via Natural or Artificial Opening (ICD-10-PCS; 2021-08-10)
PROC: 5A1D70Z Performance of Urinary Filtration, Intermittent, Less than 6 Hours Per Day (ICD-10-PCS; 2021-08-10)
PROC: 5A1D70Z Performance of Urinary Filtration, Intermittent, Less than 6 Hours Per Day (ICD-10-PCS; 2021-08-11)
PROC: 5A1D70Z Performance of Urinary Filtration, Intermittent, Less than 6 Hours Per Day (ICD-10-PCS; 2021-08-13)
PROC: 0JH63XZ Insertion of Tunneled Vascular Access Device into Chest Subcutaneous Tissue and Fascia, Percutaneous Approach (ICD-10-PCS; 2021-08-15)
PROC: 02HV33Z Insertion of Infusion Device into Superior Vena Cava, Percutaneous Approach (ICD-10-PCS; 2021-08-15)
PROC: B518ZZA Fluoroscopy of Superior Vena Cava, Guidance (ICD-10-PCS; 2021-08-15)
PROC: 5A1D70Z Performance of Urinary Filtration, Intermittent, Less than 6 Hours Per Day (ICD-10-PCS; 2021-08-15)
PROC: 5A1D70Z Performance of Urinary Filtration, Intermittent, Less than 6 Hours Per Day (ICD-10-PCS; 2021-08-16)
PROC: 5A1D70Z Performance of Urinary Filtration, Intermittent, Less than 6 Hours Per Day (ICD-10-PCS; 2021-08-17)
PROC: 5A1D70Z Performance of Urinary Filtration, Intermittent, Less than 6 Hours Per Day (ICD-10-PCS; 2021-08-20)
PROC: 5A1D70Z Performance of Urinary Filtration, Intermittent, Less than 6 Hours Per Day (ICD-10-PCS; 2021-08-21)
DX: J81.0 Acute pulmonary edema (principal); J96.01 Acute respiratory failure with hypoxia; N18.6 End stage renal disease; N17.9 Acute kidney failure, unspecified; E87.2 Acidosis; E87.1 Hypo-osmolality and hyponatremia; I12.0 Hypertensive chronic kidney disease with stage 5 chronic kidney disease or end stage renal disease; N25.81 Secondary hyperparathyroidism of renal origin; D63.1 Anemia in chronic kidney disease; E87.5 Hyperkalemia; E78.5 Hyperlipidemia, unspecified; F41.9 Anxiety disorder, unspecified; F32.A Depression, unspecified; Z99.81 Dependence on supplemental oxygen; Z20.822 Contact with and (suspected) exposure to COVID-19
CPT/HCPCS: J1644; Q5106 EC; S0164